=== PATIENT | female | born 1945 | race Caucasian/White ===

== ENCOUNTER → 2016-04-05 | Outpatient (CLI) | payer MEDICARE ==
[~2016-04-05] MED LIST: /PRAV20TA PO; AZIT500T PO; COZA100T2 PO; PAXI20TA3 PO; PRED10TA2 PO; PRED20TA PO; PRED50TA2 PO; PRED5TAB PO; TYLE325T5 PO; VENTAER IN; [UNRECOGNIZED DRUG - OTHER] PO; [UNRECOGNIZED DRUG - OTHER] PO
--- NOTE | 2016-04-28 00:26 | ECWPNPC ---
PATIENT NAME: SRUTHI HERZOG : 1945 GENDER: FEMALE VISIT DATE: 04/05/2016 DISCHARGE DATE: 04/05/16 1210 VISIT LOCKED DATE TIME: PHYSICIAN: MOE ARCHER RESOURCE: MOE ARCHER REASON FOR APPOINTMENT 1. LEGS HISTORY OF PRESENT ILLNESS HISTORY OF PRESENT ILLNESS: PAIN THE PATIENT DESCRIBES THE PAIN... FALL RISK SCREENING: SCREENING :NO FALLS IN THE PAST YEAR TODAY'S VISIT: NOTES: S/P LESB ON 02/29/16. FELT IMPROVEMENT WITHIN 48 HRS AND NOTED ABOUT 40-60% IMPROVEMT. ALL PAIN IS LOCATED IN POSTERIOR CALVES WITH MIN TO NO PAIN IN LOW BACK. STILL BOTHERS TO STAND FOR PROLONGED PERIODS. CAN WALK BUT THIS DOES INCREASE THE LEG ACHE. . CURRENT MEDICATIONS TAKING VISINE 0.05 % SOLUTION 1 DROP INTO AFFECTED EYE NEEDED OPHTHALMIC EVERY 6 HRS TAKING ZYRTEC 10 MG TABLET 1 TABLET ORALLY ONCE A DAY NEEDED TAKING TYLENOL 325 MG TABLET 1-2 TABLET NEEDED ORALLY EVERY 6 HRS TAKING OMEPRAZOLE 40MG 40 MG TABLET 1 TAB ORAL DAILY TAKING VITAMIN D (ERGOCALCIFEROL) 17668 UNIT CAPSULE 1 CAPSULE ORALLY WEEKLY TAKING PAXIL 20 MG TABLET 1 TABLET IN THE MORNING ORALLY ONCE A DAY FOR ANXIETY TAKING LOSARTAN POTASSIUM 100 MG TABLET 1 TAB(S) ORALLY DAILY TAKING [facility] FLUTICASONE PROPIONATE 50 MCG/ACT SUSPENSION 1 SPRAY IN EACH NOSTRIL NASALLY ONCE A DAY TAKING VENTOLIN HFA 108 (90 BASE) MCG/ACT AEROSOL SOLUTION 2 PUFFS NEEDED INHALATION EVERY 4 HRS NOT-TAKING OMEPRAZOLE 40 MG CAPSULE DELAYED RELEASE 1 CAPSULE ORALLY ONCE A DAY NOT-TAKING AMOXICILLIN-POT CLAVULANATE 875-125 MG TABLET 1 TABLET ORALLY EVERY 12 HRS NOT-TAKING BACLOFEN 10 MG TABLET 1 TABLET WITH FOOD OR MILK ORALLY THREE TIMES A DAY NOT-TAKING ATORVASTATIN CALCIUM 80 MG TABLET 1 TABLET ORALLY ONCE A DAY NOT-TAKING GABAPENTIN 600 MG TABLET 1 CAPSULE ORALLY THREE TIMES A DAY NOT-TAKING FLUTICASONE PROPIONATE 50 MCG/ACT SUSPENSION 1 SPRAY IN EACH NOSTRIL NASALLY ONCE A DAY FOR ALLERGIES/POSTNASAL DRIP NOT-TAKING PERCOCET 5-325 MG TABLET 1 TABLET NEEDED ORALLY EVERY 6 HRS (MDD 4) NOT-TAKING PREDNISONE 20 MG TABLET 3 TABLETS ORALLY ONCE A DAY NOT-TAKING REQUIP 0.25 MG TABLET 1 TABLET 1 TO 3 HOURS BEFORE BEDTIME ORALLY ONCE A DAY AROUND 7PM MEDICATION LIST REVIEWED AND RECONCILED WITH THE PATIENT PAST MEDICAL HISTORY HTN ANXIETY HYPERLIPIDEMIA FREQUENT BRONCHITIS MILD AORTIC VALVE SCLEROSIS (ECHO 10/2012) ESOPHAGEAL REFLUX ALLERGIC RHINITIS VIT D DEFICIENCY COLONOSCOPY/EGD 02/2013 (2 COLON POLYPS REMOVED, DIVERTICULUM, REPEAT DUE IN 2016) MITRAL VALVE DISORDER MITRAL VALVE DISORDER ALLERGIES SEASONAL: RED, ITCHY EYES, NASAL CONGESTION: ALLERGY SOCIAL HISTORY GENERAL: TOBACCO USE ARE YOU A:NONSMOKER LEARNING BARRIERS / SPECIAL NEEDS ORIENTED TO PLAN OF CARE: PATIENT, PAIN MANAGEMENT PATIENT, ORIENTED TO PLAN OF CARE: PATIENT, PAIN MANAGEMENT PATIENT. NEW PATIENT PAIN DIARY TODAY'S VISITNOTES FROM 0-10, WHAT LEVEL IS YOUR PAIN TODAY?0 PAIN CLINIC PFS, CLERGY, PUBLIC HEALTH REFERRALS PFS REFERRAL NEEDED?NO CLERGY REFERRAL NEEDED?NO PUBLIC HEALTH REFERRAL NEEDED?NO WAS THE PROVIDER NOTIFIED OF ANY PERTINENT INFO?NO PFS REFERRAL NEEDED?NO CLERGY REFERRAL NEEDED?NO PUBLIC HEALTH REFERRAL NEEDED?NO WAS THE PROVIDER NOTIFIED OF ANY PERTINENT INFO?NO REVIEW OF SYSTEMS CONSTITUTIONAL: ANY CHANGE IN YOUR MEDICAL CONDITION? NO . CHILLS NO . FEVER NO . INFECTION: DO YOU HAVE NEW INFECTIONS? NO . DO YOU HAVE HISTORY OF MRSA? NO . MUSCULOSKELETAL: ANY NEW PATTERNS OF PAIN OR NUMBNESS? NO . GASTROENTEROLOGY: ANY NEW CHANGE IN BOWEL CONTROL? NO . GENITOURINARY: ANY NEW CHANGE IN BLADDER CONTROL? NO . IS THERE A CHANCE YOU COULD BE ? NO . HEMATOLOGY/LYMPH: DO YOU TAKE ANY BLOOD THINNERS? (FOR EXAMPLE- COUMADIN, PLAVIX, AGGRENOX, PLATEL, PRADAXA, OR XARELTO) NO . WHEN WAS YOUR LAST DOSE? DATE: TIME: . NEUROLOGY: HAVE YOU FALLEN IN THE PAST 6 MONTHS? NO . ANY NEW EXTREMITY NUMBNESS OR WEAKNESS? NO . CARDIOLOGY: DO YOU HAVE A PACEMAKER OR DEFIBRILLATOR? NO . RESPIRATORY: HAVE YOU BEEN SICK IN THE PAST WEEK? YES, SINUS INFECTION AND COLD . FEVER NO . FLU LIKE SYMPTOMS? NO . COUGH YES - RECENTLY STARTED ON ABX AND INHALER . INTEGUMENTARY: DO YOU HAVE ANY RASHES OR OPEN SORES? NO . ALLERGIC/IMMUNO: ARE YOU ALLERGIC TO SHELLFISH OR IV DYE? NO . ANY NEW ALLERGIES? NO . PSYCHIATRIC: DO YOU HAVE THOUGHTS OF HURTING YOURSELF OR SOMEONE ELSE? NO . ARE YOU ABUSED, NEGLECTED, OR IN AN UNSAFE ENVIRONMENT? NO . ENDOCRINOLOGY: ARE YOU DIABETIC? NO . OTHER: DO YOU NEED ANY PRESCRIPTIONS? NO . IF YES, PLEASE LIST: ____ . ANY NEW PROBLEMS WITH YOUR MEDICATIONS? NO . WHEN DID YOU LAST EAT? ____ . WHEN DID YOU LAST DRINK? ____ . WHAT DID YOU LAST DRINK? ____ . NAME OF PERSON DRIVING YOU HOME? ____ . DO YOU HAVE ANY OTHER QUESTIONS OR CONCERNS NO . REVIEWED BY: PROVIDER: MOE GARCIA . VITAL SIGNS WT 171 LBS, HT 66 IN, BMI 27.60 INDEX, BP 143/72 MM HG, HR 90 /MIN, RR 18 /MIN, TEMP 97.5 F, OXYGEN SAT % 96, NA INITIALS TL 1109, REVIEWED BY: CS. EXAMINATION GENERAL EXAMINATION: PSYCHALERT , ORIENTED X 3 , APPROPRIATE MOOD AND AFFECT . LUNGS:CLEAR TO AUSCULTATION BILATERALLY, NO WHEEZES, RAKES OR WHONCHI.. HEART:NO MURMURS, CLICK OR RUBS, NORMAL S1S2, HEART RATE REGULAR. MUSCULOSKELETAL:MUSCLE STRENGTH TESTING 5/5 BILATERAL UPPER AND LOWER EXTREMITIES. ABLE TO RISE EASILY TO STANDING POSITION. . MINIMAL TENDERNESS WITH PALPATION OVER LUMBAR SPINOUS PROCESSES AND ACROSS THE LUMBOSACRAL AXIS. . NEUROLOGIC EXAM: ANTALGIC STEPPING GAIT. DTR'S 2+ BILATERAL UPPER EXT, 4+ BENEDICTO LOWER EXTREMITES W/CLONUS. DECREASES SENSATION LEFT LEG FROM THIGH TO FOOT.. ASSESSMENTS LUMBAR DISC DISPLACEMENT WITHOUT MYELOPATHY - M51.26 (PRIMARY) LUMBAR SPINAL STENOSIS - M48.06 TREATMENT LUMBAR DISC DISPLACEMENT WITHOUT MYELOPATHY CAUDAL/LUMBAR EPIDURAL NOTES: WHAT IS LUMBAR EPIDURAL INJECTION? MATERIAL WAS PRINTED, FALLS CARE PLAN: 1. RECOMMEND REMOVING ALL THROW RUGS. 2. RECOMMEND NIGHT LIGHTS 3. RECOMMEND WEARING RUBBER SOLED SHOES AND TO NOT GO BAREFOOT. 4.. ADVISED TO CHANGE POSITION SLOWLY FROM SUPINE TO STANDING TO AVOID DIZZINESS. 5. ADVISED TO USE ASSISTIVE DEVICE SUCH CANE OR WALKER 6. USE [employer]IF[employer] SERVICES OR KEEP PORTABLE PHONE READILY AVAILABLE. PROCEDURE CODES FA211 ESTABILISHED PATIENT [facility] FACILITY CHARGE N6573 BP SCR PRFRM RCMDD DEFIND SCR INTVL G8029 PAIN ASSESS POS TOOL F/U PLAN DOC 3016F PT SCRND UNHLTHY [place] USE 1123F ACP DISCUSS/DSCN MKR DOCD 1036F TOBACCO NON-USER 0518F FALL PLAN OF CARE DOCD G8427 DOC MEDS VERIFIED W/PT OR RE G8420 BMI<30 AND >=22 CALC & DOCU 3288F FALL RISK ASSESSMENT DOCD FOLLOW UP AFTER INJECTION (REASON: CHECK AUTH FOR LESB) ELECTRONICALLY SIGNED BY SHIRA CHOE ON 04/27/2016 AT 09:40 AM EST DISCLAIMER : THIS IS A VISIT SUMMARY EXTRACTED FROM THE [employer] CHART. IT IS NOT A COPY OF THE [employer] PROGRESS NOTE. MTDD
== END ==
LOC: M PAIN 10:40
PROVIDERS: ATTEND Nurse Practitioner Family
DX: Z09 Encounter for follow-up examination after completed treatment for conditions other than malignant neoplasm (principal); G89.29 Other chronic pain; M51.26 Other intervertebral disc displacement, lumbar region; M48.06 Spinal stenosis, lumbar region; I10 Essential (primary) hypertension; F41.9 Anxiety disorder, unspecified; E78.5 Hyperlipidemia, unspecified; I35.0 Nonrheumatic aortic (valve) stenosis; K21.9 Gastro-esophageal reflux disease without esophagitis; J30.89 Other allergic rhinitis; E55.9 Vitamin D deficiency, unspecified; J30.2 Other seasonal allergic rhinitis; Z79.899 Other long term (current) drug therapy

== ENCOUNTER → 2016-04-18 | Outpatient (CLI) | payer MEDICARE ==
[~2016-04-18] MED LIST changes: +ISOVUE-M 300 61% 15ML VIAL (Q9967) As Ordered ONE; +LIDOCAINE 1% SDV INJ 30 ML VIAL As Ordered ONE; +diazePAM 5 MG TAB As Ordered ONE; +methylPREDNISolone SUSP 40 MG/ML (DEPO-medrol) VIAL (J1030) As Ordered ONE; +oxyCODONE 5MG TAB As Ordered ONE
--- NOTE | 2016-04-18 13:47 | REP ---
Partial lumbar spine series: Three views. History: Lumbar epidural steroid injection for pain. 9 seconds of fluoroscopy time is reported. Findings: A sequence of three fluoroscopically obtained intraprocedural last image hold spot radiographs document needle position and contrast injection associated with lumbar epidural injection procedure. Signed by Kayden Hubbard MD 04/18/2016 02:25 P
--- NOTE | 2016-04-22 23:50 | ECWPNPC ---
PATIENT NAME: SRUTHI HERZOG : 1945 GENDER: FEMALE VISIT DATE: 04/18/2016 DISCHARGE DATE: 04/18/16 1523 VISIT LOCKED DATE TIME: PHYSICIAN: ÁNGEL STEWART RESOURCE: ÁNGEL STEWART REASON FOR APPOINTMENT 1. LUMBAR EPIDURAL HISTORY OF PRESENT ILLNESS HISTORY OF PRESENT ILLNESS: PAIN THE PATIENT DESCRIBES THE PAIN... FALL RISK SCREENING: SCREENING :NO FALLS IN THE PAST YEAR CURRENT MEDICATIONS TAKING VISINE 0.05 % SOLUTION 1 DROP INTO AFFECTED EYE NEEDED OPHTHALMIC EVERY 6 HRS, NOTES: 1 WEEK TAKING ZYRTEC 10 MG TABLET 1 TABLET ORALLY ONCE A DAY NEEDED, NOTES: 1 WEEK TAKING TYLENOL 325 MG TABLET 1-2 TABLET NEEDED ORALLY EVERY 6 HRS, NOTES: 2 WEEKS TAKING OMEPRAZOLE 40MG 40 MG TABLET 1 TAB ORAL DAILY, NOTES: 04/18 6AM TAKING VITAMIN D (ERGOCALCIFEROL) 24751 UNIT CAPSULE 1 CAPSULE ORALLY WEEKLY, NOTES: 04/15 TAKING PAXIL 20 MG TABLET 1 TABLET IN THE MORNING ORALLY ONCE A DAY FOR ANXIETY, NOTES: 04/18 6AM TAKING LOSARTAN POTASSIUM 100 MG TABLET 1 TAB(S) ORALLY DAILY, NOTES: 04/18 6AM TAKING [facility] FLUTICASONE PROPIONATE 50 MCG/ACT SUSPENSION 1 SPRAY IN EACH NOSTRIL NASALLY ONCE A DAY, NOTES: 3 WEEKS NOT-TAKING VENTOLIN HFA 108 (90 BASE) MCG/ACT AEROSOL SOLUTION 2 PUFFS NEEDED INHALATION EVERY 4 HRS NOT-TAKING OMEPRAZOLE 40 MG CAPSULE DELAYED RELEASE 1 CAPSULE ORALLY ONCE A DAY NOT-TAKING AMOXICILLIN-POT CLAVULANATE 875-125 MG TABLET 1 TABLET ORALLY EVERY 12 HRS NOT-TAKING BACLOFEN 10 MG TABLET 1 TABLET WITH FOOD OR MILK ORALLY THREE TIMES A DAY NOT-TAKING ATORVASTATIN CALCIUM 80 MG TABLET 1 TABLET ORALLY ONCE A DAY NOT-TAKING GABAPENTIN 600 MG TABLET 1 CAPSULE ORALLY THREE TIMES A DAY NOT-TAKING FLUTICASONE PROPIONATE 50 MCG/ACT SUSPENSION 1 SPRAY IN EACH NOSTRIL NASALLY ONCE A DAY FOR ALLERGIES/POSTNASAL DRIP NOT-TAKING PERCOCET 5-325 MG TABLET 1 TABLET NEEDED ORALLY EVERY 6 HRS (MDD 4) NOT-TAKING PREDNISONE 20 MG TABLET 3 TABLETS ORALLY ONCE A DAY NOT-TAKING REQUIP 0.25 MG TABLET 1 TABLET 1 TO 3 HOURS BEFORE BEDTIME ORALLY ONCE A DAY AROUND 7PM MEDICATION LIST REVIEWED AND RECONCILED WITH THE PATIENT PAST MEDICAL HISTORY HTN ANXIETY HYPERLIPIDEMIA FREQUENT BRONCHITIS MILD AORTIC VALVE SCLEROSIS (ECHO 10/2012) ESOPHAGEAL REFLUX ALLERGIC RHINITIS VIT D DEFICIENCY COLONOSCOPY/EGD 02/2013 (2 COLON POLYPS REMOVED, DIVERTICULUM, REPEAT DUE IN 2016) MITRAL VALVE DISORDER MITRAL VALVE DISORDER ALLERGIES SEASONAL: RED, ITCHY EYES, NASAL CONGESTION: ALLERGY SOCIAL HISTORY GENERAL: TOBACCO USE ARE YOU A:NONSMOKER LEARNING BARRIERS / SPECIAL NEEDS ORIENTED TO PLAN OF CARE: PATIENT, PAIN MANAGEMENT PATIENT, ORIENTED TO PLAN OF CARE: PATIENT, PAIN MANAGEMENT PATIENT. NEW PATIENT PAIN DIARY TODAY'S VISITNOTES FROM 0-10, WHAT LEVEL IS YOUR PAIN TODAY?0 PAIN CLINIC PFS, CLERGY, PUBLIC HEALTH REFERRALS PFS REFERRAL NEEDED?NO CLERGY REFERRAL NEEDED?NO PUBLIC HEALTH REFERRAL NEEDED?NO WAS THE PROVIDER NOTIFIED OF ANY PERTINENT INFO?NO PFS REFERRAL NEEDED?NO CLERGY REFERRAL NEEDED?NO PUBLIC HEALTH REFERRAL NEEDED?NO WAS THE PROVIDER NOTIFIED OF ANY PERTINENT INFO?NO REVIEW OF SYSTEMS CONSTITUTIONAL: ANY CHANGE IN YOUR MEDICAL CONDITION? NO . CHILLS NO . FEVER NO . INFECTION: DO YOU HAVE NEW INFECTIONS? NO . DO YOU HAVE HISTORY OF MRSA? NO . MUSCULOSKELETAL: ANY NEW PATTERNS OF PAIN OR NUMBNESS? NO . GASTROENTEROLOGY: ANY NEW CHANGE IN BOWEL CONTROL? NO . GENITOURINARY: ANY NEW CHANGE IN BLADDER CONTROL? NO . IS THERE A CHANCE YOU COULD BE ? NO . HEMATOLOGY/LYMPH: DO YOU TAKE ANY BLOOD THINNERS? (FOR EXAMPLE- COUMADIN, PLAVIX, AGGRENOX, PLATEL, PRADAXA, OR XARELTO) NO . WHEN WAS YOUR LAST DOSE? DATE: TIME: . NEUROLOGY: HAVE YOU FALLEN IN THE PAST 6 MONTHS? NO . ANY NEW EXTREMITY NUMBNESS OR WEAKNESS? NO . CARDIOLOGY: DO YOU HAVE A PACEMAKER OR DEFIBRILLATOR? NO . RESPIRATORY: HAVE YOU BEEN SICK IN THE PAST WEEK? NO . FEVER NO . FLU LIKE SYMPTOMS? NO . COUGH NO . INTEGUMENTARY: DO YOU HAVE ANY RASHES OR OPEN SORES? NO . ALLERGIC/IMMUNO: ARE YOU ALLERGIC TO SHELLFISH OR IV DYE? NO . ANY NEW ALLERGIES? NO . PSYCHIATRIC: DO YOU HAVE THOUGHTS OF HURTING YOURSELF OR SOMEONE ELSE? NO . ARE YOU ABUSED, NEGLECTED, OR IN AN UNSAFE ENVIRONMENT? NO . ENDOCRINOLOGY: ARE YOU DIABETIC? NO . OTHER: DO YOU NEED ANY PRESCRIPTIONS? NO . IF YES, PLEASE LIST: ____ . ANY NEW PROBLEMS WITH YOUR MEDICATIONS? NO . WHEN DID YOU LAST EAT? 04/17 6PM . WHEN DID YOU LAST DRINK? 04/18 6AM . WHAT DID YOU LAST DRINK? WATER . NAME OF PERSON DRIVING YOU HOME? JAMES . DO YOU HAVE ANY OTHER QUESTIONS OR CONCERNS NO . REVIEWED BY: PROVIDER: . VITAL SIGNS WT 171 LBS, HT 66 IN, BMI 27.60 INDEX, BP 161/85 MM HG, HR 94 /MIN, RR 18 /MIN, TEMP 97.9 F, OXYGEN SAT % 96, SAFE IN ENV? (Y/N) Y, NA INITIALS MP, REVIEWED BY: DS. ASSESSMENTS INTERVERTEBRAL DISC DISORDERS WITH RADICULOPATHY, LUMBOSACRAL REGION - M51.17 (PRIMARY) PROCEDURES PRE PROCEDURE DIAGNOSIS LUMBOSACRAL DISC DISORDER WITH RADICULOPATHY POST PROCEDURE DIAGNOSIS LUMBOSACRAL DISC DISORDER WITH RADICULOPATHY PROCEDURE LUMBAR EPIDURAL STEROID INJECTION UNDER FLUOROSCOPIC GUIDANCE SURGEON DR. ÁNGEL STEWART RESOLUTION ANALYST NONE ANESTHESIA LOCAL PRE PROCEDURE NOTE THE PATIENT HAS A HISTORY OF CHRONIC LOW BACK PAIN. I EVALUATE THE PATIENT AND REVIEWED THE CHART. I WENT OVER THE RISKS, ALTERNATIVES, AND BENEFITS ASSOCIATED WITH THIS PROCEDURE. THE PATIENT WOULD LIKE TO PROCEED AND GIVE CONSENT TO PERFORMED THE PROCEDURE. THE PATIENT DENIES UNEXPLAINABLE WEIGHT LOSS, FEVER, CHILLS, OR NEW CHANGES IN URINARY OR BOWEL CONTROL DESCRIPTION OF PROCEDURE THE PATIENT WAS BROUGHT TO THE PROCEDURE ROOM AND PLACED IN THE PRONE POSITION. THE LUMBOSACRAL AREA WAS CLEANED WITH BETADINE SOLUTION AND DRAPED ASEPTICALLY. THE PROCEDURE WAS DONE UNDER STERILE CONDITIONS. I CHECKED LATERALITY AND THE LEVEL WHERE THE PROCEDURE WAS GOING TO BE PERFORMED WITH THE PATIENT AND THE SUPPORTING STAFF AT THE MOMENT OF THE TIME OUT IN THE PROCEDURE ROOM. UNDER FLUOROSCOPIC GUIDANCE, THE TARGET POINT WAS SELECTED AT THE INTERLAMINAR LEVEL OF L5-S1. LIDOCAINE WAS USED TO NUMB THE SKIN AND THE SUBCUTANEOUS TISSUE BELOW IT. EPIDURAL TUOHY NEEDLE, 17-GAUGE, WAS ADVANCED UNDER FLUOROSCOPIC GUIDANCE AND FOLLOWING PATIENT FEEDBACK UNTIL THE EPIDURAL SPACE WAS REACHED, 7 CM DEEP INTO THE SKIN BY THE LOSS OF RESISTANCE TECHNIQUE. ISOVUE M DYE 30%, 0.25 ML, WAS INJECTED SHOWING ADEQUATE SPREAD OF THE DYE. THEN, A SOLUTION OF 3 ML OF NORMAL SALINE WITH DEPO-MEDROL 60 MG WAS INJECTED SLOWLY FOLLOWING PATIENT FEEDBACK. THERE WAS NO EVIDENCE OF BLOOD, PARESTHESIA OR CEREBROSPINAL FLUID DURING THE PROCEDURE. THE PATIENT WAS SENT TO THE RECOVERY ROOM. THE PATIENT WAS MOVING THE EXTREMITIES AND DOING WELL. THERE WAS NO COMPLICATION DURING THE PROCEDURE. FLUOROSCOPY TIME WAS 9 SECONDS POST PROCEDURE NOTE THE PATIENT WILL BE SEEN IN A FOLLOW UP IN THE NEXT FEW WEEKS. INSTRUCTIONS WERE GIVEN, QUESTIONS WERE ANSWERED, AND THE PATIENT EXPRESSED UNDERSTANDING AND AGREES WITH THE PLAN. I, NUNO COWART, DOCUMENTED THE ABOVE INFORMATION ACTING A SCRIBE FOR DR. STEWART. I, DR. STEWART, HAVE REVIEWED THE ABOVE DOCUMENT, SCRIBED BY NUNO COWART, AND I VERIFY THAT IT IS ACCURATE DIAGNOSTIC IMAGING [facility] FLUORO GUIDE SPINE INJECTION (PAIN)[id number] PROCEDURE CODES 36257 LUMBAR/SACRAL W/ IMAGING 6045F RADXPS IN END [id number] PXD FOLLOW UP 3 WEEKS ELECTRONICALLY SIGNED BY ÁNGEL STEWART MD ON 04/22/2016 AT 08:32 PM EST DISCLAIMER : THIS IS A VISIT SUMMARY EXTRACTED FROM THE [employer] CHART. IT IS NOT A COPY OF THE [employer] PROGRESS NOTE. MTDD
== END ==
LOC: M PAIN 10:50
PROVIDERS: ATTEND Anesthesiology
DX: G89.29 Other chronic pain (principal); M51.17 Intervertebral disc disorders with radiculopathy, lumbosacral region; M54.5 Low back pain; Z79.899 Other long term (current) drug therapy
CPT/HCPCS: 62323; J1030; Q9967

== ENCOUNTER → 2016-05-17 | Outpatient (REF) | payer MEDICARE ==
[~2016-05-17] MED LIST changes: -ISOVUE-M 300 61% 15ML VIAL (Q9967) As Ordered ONE; -LIDOCAINE 1% SDV INJ 30 ML VIAL As Ordered ONE; -diazePAM 5 MG TAB As Ordered ONE; -methylPREDNISolone SUSP 40 MG/ML (DEPO-medrol) VIAL (J1030) As Ordered ONE; -oxyCODONE 5MG TAB As Ordered ONE
== END ==
LOC: M SFHCLERA 10:05
PROVIDERS: ATTEND Family Medicine
DX: M48.07 Spinal stenosis, lumbosacral region (principal); Z79.899 Other long term (current) drug therapy
CPT/HCPCS: 80061; G0463

== ENCOUNTER → 2016-06-06 | Outpatient (CLI) | payer MEDICARE ==
--- NOTE | 2016-06-15 00:07 | ECWPNPC ---
PATIENT NAME: SRUTHI HERZOG : 1945 GENDER: FEMALE VISIT DATE: 06/06/2016 DISCHARGE DATE: 06/06/16 1141 VISIT LOCKED DATE TIME: PHYSICIAN: MOE ARCHER RESOURCE: MOE ARCHER REASON FOR APPOINTMENT 1. FOLLOW UP HISTORY OF PRESENT ILLNESS HISTORY OF PRESENT ILLNESS: PAIN THE PATIENT DESCRIBES THE PAIN... FALL RISK SCREENING: SCREENING :NO FALLS IN THE PAST YEAR TODAY'S VISIT: NOTES: IS S/P LESB ON 04/18/16. REPORTS HAD MINIMAL TO NO RELIEF FROM THE TREATMENT.HAD NO SENSE OF MEDICATION OR PRESSURE INTO LEGS. PAIN IS ALL IN POSTERIOR CALVES.NO PAIN IN FRONT OF CALVES, THIGHS OR HIP. DOES HAVE SOME DISCOMFORT ACROSS THE LOW BACK. IS EXPERIENCING WEAKNESS IN RIGHT LEG. HAS HAD NO RENCET FALLS. DENIES NUMBNESS AND TINGLING IN LEGS OR FEET.. CURRENT MEDICATIONS TAKING VITAMIN D (CHOLECALCIFEROL) 1000 UNIT TABLET 1 TABLET ORALLY ONCE A DAY TAKING LOSARTAN POTASSIUM 100 MG TABLET TAKE 1 TABLET BY MOUTH DAILY ORALLY DAILY TAKING VISINE 0.05 % SOLUTION 1 DROP INTO AFFECTED EYE NEEDED OPHTHALMIC EVERY 6 HRS TAKING ZYRTEC 10 MG TABLET 1 TABLET ORALLY ONCE A DAY NEEDED TAKING TYLENOL 325 MG TABLET 1-2 TABLET NEEDED ORALLY EVERY 6 HRS TAKING OMEPRAZOLE 40MG 40 MG TABLET 1 TAB ORAL DAILY TAKING PAXIL 20 MG TABLET 1 TABLET IN THE MORNING ORALLY ONCE A DAY FOR ANXIETY TAKING [facility] FLUTICASONE PROPIONATE 50 MCG/ACT SUSPENSION 1 SPRAY IN EACH NOSTRIL NASALLY ONCE A DAY TAKING ATORVASTATIN CALCIUM 80 MG TABLET 1 TABLET ORALLY ONCE A DAY DISCONTINUED FLONASE 50 MCG/DOSE INHALER 2 SPRAY IN EACH NOSTRIL NASALLY QHS MEDICATION LIST REVIEWED AND RECONCILED WITH THE PATIENT PAST MEDICAL HISTORY HTN ANXIETY HYPERLIPIDEMIA FREQUENT BRONCHITIS MILD AORTIC VALVE SCLEROSIS (ECHO 10/2012) ESOPHAGEAL REFLUX ALLERGIC RHINITIS VIT D DEFICIENCY COLONOSCOPY/EGD 02/2013 (2 COLON POLYPS REMOVED, DIVERTICULUM, REPEAT DUE IN 2016) MITRAL VALVE DISORDER MITRAL VALVE DISORDER ALLERGIES SEASONAL: RED, ITCHY EYES, NASAL CONGESTION: ALLERGY SOCIAL HISTORY GENERAL: TOBACCO USE ARE YOU A:NONSMOKER LEARNING BARRIERS / SPECIAL NEEDS ORIENTED TO PLAN OF CARE: PATIENT, PAIN MANAGEMENT PATIENT, ORIENTED TO PLAN OF CARE: PATIENT, PAIN MANAGEMENT PATIENT. NEW PATIENT PAIN DIARY TODAY'S VISITNOTES FROM 0-10, WHAT LEVEL IS YOUR PAIN TODAY?0 PAIN CLINIC PFS, CLERGY, PUBLIC HEALTH REFERRALS PFS REFERRAL NEEDED?NO CLERGY REFERRAL NEEDED?NO PUBLIC HEALTH REFERRAL NEEDED?NO WAS THE PROVIDER NOTIFIED OF ANY PERTINENT INFO?NO PFS REFERRAL NEEDED?NO CLERGY REFERRAL NEEDED?NO PUBLIC HEALTH REFERRAL NEEDED?NO WAS THE PROVIDER NOTIFIED OF ANY PERTINENT INFO?NO REVIEW OF SYSTEMS CONSTITUTIONAL: ANY CHANGE IN YOUR MEDICAL CONDITION? NO . CHILLS NO . FEVER NO . INFECTION: DO YOU HAVE NEW INFECTIONS? NO . DO YOU HAVE HISTORY OF MRSA? NO . MUSCULOSKELETAL: ANY NEW PATTERNS OF PAIN OR NUMBNESS? NO . GASTROENTEROLOGY: ANY NEW CHANGE IN BOWEL CONTROL? NO . GENITOURINARY: ANY NEW CHANGE IN BLADDER CONTROL? NO . IS THERE A CHANCE YOU COULD BE ? NO . HEMATOLOGY/LYMPH: DO YOU TAKE ANY BLOOD THINNERS? (FOR EXAMPLE- COUMADIN, PLAVIX, AGGRENOX, PLATEL, PRADAXA, OR XARELTO) NO . WHEN WAS YOUR LAST DOSE? DATE: TIME: . NEUROLOGY: HAVE YOU FALLEN IN THE PAST 6 MONTHS? NO . ANY NEW EXTREMITY NUMBNESS OR WEAKNESS? NO . CARDIOLOGY: DO YOU HAVE A PACEMAKER OR DEFIBRILLATOR? NO . RESPIRATORY: HAVE YOU BEEN SICK IN THE PAST WEEK? NO . FEVER NO . FLU LIKE SYMPTOMS? NO . COUGH NO . INTEGUMENTARY: DO YOU HAVE ANY RASHES OR OPEN SORES? NO . ALLERGIC/IMMUNO: ARE YOU ALLERGIC TO SHELLFISH OR IV DYE? NO . ANY NEW ALLERGIES? NO . PSYCHIATRIC: DO YOU HAVE THOUGHTS OF HURTING YOURSELF OR SOMEONE ELSE? NO . ARE YOU ABUSED, NEGLECTED, OR IN AN UNSAFE ENVIRONMENT? NO . ENDOCRINOLOGY: ARE YOU DIABETIC? NO . OTHER: DO YOU NEED ANY PRESCRIPTIONS? NO . IF YES, PLEASE LIST: ____ . ANY NEW PROBLEMS WITH YOUR MEDICATIONS? NO . WHEN DID YOU LAST EAT? ____ . WHEN DID YOU LAST DRINK? ____ . WHAT DID YOU LAST DRINK? ____ . NAME OF PERSON DRIVING YOU HOME? ____ . DO YOU HAVE ANY OTHER QUESTIONS OR CONCERNS YES, RIGHT EAR ACHE X 1 WEEK . REVIEWED BY: PROVIDER: MOE ARCHER TUMBLER PLATER . VITAL SIGNS WT 184 LBS, HT 66 IN, BMI 29.70 INDEX, BP 127/67 MM HG, HR 89 /MIN, RR 18 /MIN, TEMP 99.0 F, OXYGEN SAT % 97, NA INITIALS AW 1057, REVIEWED BY: AD. EXAMINATION GENERAL EXAMINATION: PSYCHALERT , ORIENTED X 3 , APPROPRIATE MOOD AND AFFECT . LUNGS:CLEAR TO AUSCULTATION BILATERALLY. HEART:HEART RATE REGULAR. MUSCULOSKELETAL:DIFFUCULT TO STAND. BALANCE OFF. GAIT SLOW/WOBBLING. NO SPECIFIC LE WEAKNESS. NO TENDERNESS WITH PALPATION OVER LSP OR OVER CALVES. . ASSESSMENTS SPINAL STENOSIS OF LUMBOSACRAL REGION - M48.07 (PRIMARY) LUMBAR DISC DISPLACEMENT WITHOUT MYELOPATHY - M51.26 (PRIMARY) LUMBAR SPINAL STENOSIS - M48.06 TREATMENT SPINAL STENOSIS OF LUMBOSACRAL REGION CAUDAL/LUMBAR EPIDURALMOE ARCHER 06/06/2016 11:24:08 AM > INTRALAMIAL APPROACH AT L3 LEVEL NOTES: CALL DR BERRY OR GO TO URGENT CARE IF RIGHT EAR PAIN DOES NOT IMPROVE OR IF DIZZINESS DEVELOPSCONTINUE WALKING ABLE. PREVENTIVE MEDICINE PAIN CLINIC TEACHING: PROCEDURE TEACHING PT. DECLINED PRINTED INFORMATION ON EPIDURAL STATING SHE HAS HAD THEM AND IS VERY FAMILIAR WITH THE PROCEDURE.. PROCEDURE CODES FA211 ESTABILISHED PATIENT [facility] FACILITY CHARGE G8730 PAIN ASSESS POS TOOL F/U PLAN DOC G8427 DOC MEDS VERIFIED W/PT OR RE DISPOSITION & COMMUNICATION FOLLOW UP AFTER INJECTION (REASON: CHECK AUTH FOR L3 INTRALAMINAL LESB) ELECTRONICALLY SIGNED BY SHIRA CHOE ON 06/14/2016 AT 10:13 AM EDT DISCLAIMER : THIS IS A VISIT SUMMARY EXTRACTED FROM THE [employer] CHART. IT IS NOT A COPY OF THE [employer] PROGRESS NOTE. JANE
== END ==
LOC: M PAIN 10:20
PROVIDERS: ATTEND Nurse Practitioner Family
DX: M48.07 Spinal stenosis, lumbosacral region (principal); M51.26 Other intervertebral disc displacement, lumbar region; M48.06 Spinal stenosis, lumbar region; Z79.2 Long term (current) use of antibiotics; Z79.899 Other long term (current) drug therapy; I10 Essential (primary) hypertension; F41.9 Anxiety disorder, unspecified; E78.5 Hyperlipidemia, unspecified; K21.9 Gastro-esophageal reflux disease without esophagitis; I35.0 Nonrheumatic aortic (valve) stenosis; J30.2 Other seasonal allergic rhinitis; E55.9 Vitamin D deficiency, unspecified; J45.20 Mild intermittent asthma, uncomplicated

== ENCOUNTER → 2016-06-26 | Outpatient (CLI) | payer MEDICARE ==
[~2016-06-26] MED LIST changes: +ISOVUE-M 300 61% 15ML VIAL (Q9967) As Ordered ONE; +LIDOCAINE 1% SDV INJ 30 ML VIAL As Ordered ONE; +diazePAM 5 MG TAB As Ordered ONE; +methylPREDNISolone SUSP 40 MG/ML (DEPO-medrol) VIAL (J1030) As Ordered ONE; +oxyCODONE 5MG TAB As Ordered ONE
--- NOTE | 2016-06-26 12:25 | REP ---
PARTIAL LUMBAR SPINE SERIES: Three views. HISTORY: Injection procedure for pain. 9 seconds of fluoroscopy time is reported. FINDINGS: A sequence of three fluoroscopically obtained last image hold intraprocedural spot radiographs of the lumbar spine document needle position and contrast injection associated with lumbar epidural injection procedure. Signed by Kayden Hubbard MD 06/26/2016 02:56 P
--- NOTE | 2016-07-01 23:20 | ECWPNPC ---
PATIENT NAME: SRUTHI HERZOG : 1945 GENDER: FEMALE VISIT DATE: 06/26/2016 DISCHARGE DATE: 06/26/16 1019 VISIT LOCKED DATE TIME: PHYSICIAN: ÁNGEL STEWART RESOURCE: ÁNGEL STEWART REASON FOR APPOINTMENT 1. LESI-L3 HISTORY OF PRESENT ILLNESS HISTORY OF PRESENT ILLNESS: PAIN THE PATIENT DESCRIBES THE PAIN... FALL RISK SCREENING: SCREENING :NO FALLS IN THE PAST YEAR CURRENT MEDICATIONS TAKING VITAMIN D (CHOLECALCIFEROL) 1000 UNIT TABLET 1 TABLET ORALLY ONCE A DAY, NOTES: 06/25/16729 TAKING LOSARTAN POTASSIUM 100 MG TABLET TAKE 1 TABLET BY MOUTH DAILY ORALLY DAILY, NOTES: 06/25/16729 TAKING VISINE 0.05 % SOLUTION 1 DROP INTO AFFECTED EYE NEEDED OPHTHALMIC EVERY 6 HRS, NOTES: NONE LATELY TAKING ZYRTEC 10 MG TABLET 1 TABLET ORALLY ONCE A DAY NEEDED, NOTES: NONE LATELY TAKING TYLENOL 325 MG TABLET 1-2 TABLET NEEDED ORALLY EVERY 6 HRS, NOTES: NONE LATELY TAKING OMEPRAZOLE 40MG 40 MG TABLET 1 TAB ORAL DAILY, NOTES: 06/25/16729 TAKING PAXIL 20 MG TABLET 1 TABLET IN THE MORNING ORALLY ONCE A DAY FOR ANXIETY, NOTES: 06/25/16729 TAKING [facility] FLUTICASONE PROPIONATE 50 MCG/ACT SUSPENSION 1 SPRAY IN EACH NOSTRIL NASALLY ONCE A DAY, NOTES: 06/25/162099 TAKING ATORVASTATIN CALCIUM 80 MG TABLET 1 TABLET ORALLY ONCE A DAY, NOTES: 06/25/16729 MEDICATION LIST REVIEWED AND RECONCILED WITH THE PATIENT PAST MEDICAL HISTORY HTN ANXIETY HYPERLIPIDEMIA FREQUENT BRONCHITIS MILD AORTIC VALVE SCLEROSIS (ECHO 10/2012) ESOPHAGEAL REFLUX ALLERGIC RHINITIS VIT D DEFICIENCY COLONOSCOPY/EGD 02/2013 (2 COLON POLYPS REMOVED, DIVERTICULUM, REPEAT DUE IN 2015) MITRAL VALVE DISORDER MITRAL VALVE DISORDER ALLERGIES SEASONAL: RED, ITCHY EYES, NASAL CONGESTION: ALLERGY SOCIAL HISTORY GENERAL: PAIN CLINIC PFS, CLERGY, PUBLIC HEALTH REFERRALS CLERGY REFERRAL NEEDED?NO WAS THE PROVIDER NOTIFIED OF ANY PERTINENT INFO?NO PFS REFERRAL NEEDED?NO PUBLIC HEALTH REFERRAL NEEDED?NO PATIENT: ____. REVIEW OF SYSTEMS CONSTITUTIONAL: ANY CHANGE IN YOUR MEDICAL CONDITION? NO . CHILLS NO . FEVER NO . INFECTION: DO YOU HAVE NEW INFECTIONS? NO . DO YOU HAVE HISTORY OF MRSA? NO . MUSCULOSKELETAL: ANY NEW PATTERNS OF PAIN OR NUMBNESS? NO . GASTROENTEROLOGY: ANY NEW CHANGE IN BOWEL CONTROL? NO . GENITOURINARY: ANY NEW CHANGE IN BLADDER CONTROL? NO . IS THERE A CHANCE YOU COULD BE ? NO . HEMATOLOGY/LYMPH: DO YOU TAKE ANY BLOOD THINNERS? (FOR EXAMPLE- COUMADIN, PLAVIX, AGGRENOX, PLATEL, PRADAXA, OR XARELTO) NO . WHEN WAS YOUR LAST DOSE? DATE: TIME: . NEUROLOGY: HAVE YOU FALLEN IN THE PAST 6 MONTHS? NO . ANY NEW EXTREMITY NUMBNESS OR WEAKNESS? NO . CARDIOLOGY: DO YOU HAVE A PACEMAKER OR DEFIBRILLATOR? NO . RESPIRATORY: HAVE YOU BEEN SICK IN THE PAST WEEK? NO . FEVER NO . FLU LIKE SYMPTOMS? NO . COUGH NO . INTEGUMENTARY: DO YOU HAVE ANY RASHES OR OPEN SORES? NO . ALLERGIC/IMMUNO: ARE YOU ALLERGIC TO SHELLFISH OR IV DYE? NO . ANY NEW ALLERGIES? NO . PSYCHIATRIC: DO YOU HAVE THOUGHTS OF HURTING YOURSELF OR SOMEONE ELSE? NO . ARE YOU ABUSED, NEGLECTED, OR IN AN UNSAFE ENVIRONMENT? NO . ENDOCRINOLOGY: ARE YOU DIABETIC? NO . OTHER: DO YOU NEED ANY PRESCRIPTIONS? NO . IF YES, PLEASE LIST: ____ . ANY NEW PROBLEMS WITH YOUR MEDICATIONS? NO . WHEN DID YOU LAST EAT? ____ . WHEN DID YOU LAST DRINK? ____ . WHAT DID YOU LAST DRINK? ____ . NAME OF PERSON DRIVING YOU HOME? ____ . DO YOU HAVE ANY OTHER QUESTIONS OR CONCERNS NO . REVIEWED BY: PROVIDER: . VITAL SIGNS WT 172 LBS, HT 66 IN, BMI 27.76 INDEX, BP 157/81 MM HG, HR 98 /MIN, RR 18 /MIN, TEMP 99.1 F, NA INITIALS [id number], REVIEWED BY: MLF. ASSESSMENTS INTERVERTEBRAL DISC DISORDERS WITH RADICULOPATHY, LUMBOSACRAL REGION - M51.17 (PRIMARY) PROCEDURES PRE PROCEDURE DIAGNOSIS LUMBOSACRAL DISC DISORDER WITH RADICULOPATHY POST PROCEDURE DIAGNOSIS LUMBOSACRAL DISC DISORDER WITH RADICULOPATHY PROCEDURE LUMBAR EPIDURAL STEROID INJECTION UNDER FLUOROSCOPIC GUIDANCE SURGEON DR. ÁNGEL STEWART [employer] SECURITY SCREENER NONE ANESTHESIA LOCAL PRE PROCEDURE NOTE THE PATIENT HAS A HISTORY OF CHRONIC LOW BACK PAIN. I EVALUATE THE PATIENT AND REVIEWED THE CHART. I WENT OVER THE RISKS, ALTERNATIVES, AND BENEFITS ASSOCIATED WITH THIS PROCEDURE. THE PATIENT WOULD LIKE TO PROCEED AND GIVE CONSENT TO PERFORMED THE PROCEDURE. THE PATIENT DENIES UNEXPLAINABLE WEIGHT LOSS, FEVER, CHILLS, OR NEW CHANGES IN URINARY OR BOWEL CONTROL DESCRIPTION OF PROCEDURE THE PATIENT WAS BROUGHT TO THE PROCEDURE ROOM AND PLACED IN THE PRONE POSITION. THE LUMBOSACRAL AREA WAS CLEANED WITH BETADINE SOLUTION AND DRAPED ASEPTICALLY. THE PROCEDURE WAS DONE UNDER STERILE CONDITIONS. I CHECKED LATERALITY AND THE LEVEL WHERE THE PROCEDURE WAS GOING TO BE PERFORMED WITH THE PATIENT AND THE SUPPORTING STAFF AT THE MOMENT OF THE TIME OUT IN THE PROCEDURE ROOM. UNDER FLUOROSCOPIC GUIDANCE, THE TARGET POINT WAS SELECTED AT THE INTERLAMINAR LEVEL OF L5-S1. LIDOCAINE WAS USED TO NUMB THE SKIN AND THE SUBCUTANEOUS TISSUE BELOW IT. EPIDURAL TUOHY NEEDLE, 17-GAUGE, WAS ADVANCED UNDER FLUOROSCOPIC GUIDANCE AND FOLLOWING PATIENT FEEDBACK UNTIL THE EPIDURAL SPACE WAS REACHED, 7 CM DEEP INTO THE SKIN BY THE LOSS OF RESISTANCE TECHNIQUE. ISOVUE M DYE 30%, 0.25 ML, WAS INJECTED SHOWING ADEQUATE SPREAD OF THE DYE. THEN, A SOLUTION OF 3 ML OF NORMAL SALINE WITH DEPO-MEDROL 60 MG WAS INJECTED SLOWLY FOLLOWING PATIENT FEEDBACK. THERE WAS NO EVIDENCE OF BLOOD, PARESTHESIA OR CEREBROSPINAL FLUID DURING THE PROCEDURE. THE PATIENT WAS SENT TO THE RECOVERY ROOM. THE PATIENT WAS MOVING THE EXTREMITIES AND DOING WELL. THERE WAS NO COMPLICATION DURING THE PROCEDURE. FLUOROSCOPY TIME WAS 9 SECONDS POST PROCEDURE NOTE THE PATIENT WILL BE SEEN IN A FOLLOW UP IN THE NEXT FEW WEEKS. INSTRUCTIONS WERE GIVEN, QUESTIONS WERE ANSWERED, AND THE PATIENT EXPRESSED UNDERSTANDING AND AGREES WITH THE PLAN. I, NUNO COWART, DOCUMENTED THE ABOVE INFORMATION ACTING A SCRIBE FOR DR. STEWART. I, DR. STEWART, HAVE REVIEWED THE ABOVE DOCUMENT, SCRIBED BY NUNO COWART, AND I VERIFY THAT IT IS ACCURATE DIAGNOSTIC IMAGING [facility] FLUORO GUIDE SPINE INJECTION (PAIN)[id number] PROCEDURE CODES 82220 LUMBAR/SACRAL W/ IMAGING 6045F RADXPS IN END [id number] PXD DISPOSITION & COMMUNICATION FOLLOW UP 3 WEEKS ELECTRONICALLY SIGNED BY ÁNGEL STEWART MD ON 07/01/2016 AT 05:33 PM EDT DISCLAIMER : THIS IS A VISIT SUMMARY EXTRACTED FROM THE [employer] CHART. IT IS NOT A COPY OF THE [employer] PROGRESS NOTE. MTDD
== END ==
LOC: M PAIN 08:40
PROVIDERS: ATTEND Anesthesiology
DX: G89.29 Other chronic pain (principal); M54.5 Low back pain; M51.17 Intervertebral disc disorders with radiculopathy, lumbosacral region; Z79.899 Other long term (current) drug therapy; I10 Essential (primary) hypertension; J45.20 Mild intermittent asthma, uncomplicated; E87.5 Hyperkalemia; E55.9 Vitamin D deficiency, unspecified; J30.2 Other seasonal allergic rhinitis
CPT/HCPCS: 62323; J1030; Q9967

== ENCOUNTER → 2016-08-21 | Outpatient (CLI) | payer MEDICARE ==
[~2016-08-21] MED LIST changes: +ASPI325T PO; +GABA-282 PO; -ISOVUE-M 300 61% 15ML VIAL (Q9967) As Ordered ONE; -LIDOCAINE 1% SDV INJ 30 ML VIAL As Ordered ONE; +MORP15TASA PO; +OMEP40CA2 PO; +PERC5TAB6 PO; +PRAV40TA2 PO; +VITA100037 PO; -diazePAM 5 MG TAB As Ordered ONE; -methylPREDNISolone SUSP 40 MG/ML (DEPO-medrol) VIAL (J1030) As Ordered ONE; -oxyCODONE 5MG TAB As Ordered ONE
[2016-08-21 14:17] LABS: ANION GAP 5 MEQ/L (8-16); BLOOD UREA NITROGEN 16 MG/DL (7-18); CALCIUM LEVEL 9.5 MG/DL (8.8-10.2); CARBON DIOXIDE LEVEL 30 MEQ/L (21-32); CHLORIDE LEVEL 105 MEQ/L (98-107); CREATININE FOR GFR 0.58 MG/DL (0.55-1.02); GLOMERULAR FILTRATION RATE > 60.0 (>39); GLUCOSE, FASTING 93 MG/DL (83-110); POTASSIUM SERUM 4.4 MEQ/L (3.5-5.1); SODIUM LEVEL 140 MEQ/L (136-145)
[2016-08-21 18:40] LABS: INR 0.95
== END ==
LOC: M LRY 10:55
PROVIDERS: ATTEND Orthopaedic Surgery
DX: Z01.818 Encounter for other preprocedural examination (principal); M48.06 Spinal stenosis, lumbar region; F41.9 Anxiety disorder, unspecified; Z79.899 Other long term (current) drug therapy; Z86.79 Personal history of other diseases of the circulatory system
CPT/HCPCS: 36415; 80053; 85018; 85027; 85610; 85730; 86850; 86900; 86901; 93005; G0463

== ENCOUNTER → 2016-08-21 | Outpatient (REF) | payer MEDICARE ==
[~2016-08-21] MED LIST changes: -ASPI325T PO; -MORP15TASA PO; -PERC5TAB6 PO
[2016-08-21 14:12] LABS: INR 0.95
[2016-08-21 14:13] LABS: MEAN CORPUSCULAR HEMOGLOBIN 31.9 pg (27.0-33.0); MEAN CORPUSCULAR HGB CONC 34.5 g/dl (32.0-36.5); MEAN CORPUSCULAR VOLUME 92.5 fl (80.0-96.0); RED CELL DISTRIBUTION WIDTH 12.5 % (11.5-14.5); WHITE BLOOD COUNT 6.2 K/mm3 (4.0-10.0)
[2016-08-21 14:34] LABS: ALBUMIN 4.2 GM/DL (3.2-5.2); ALBUMIN/GLOBULIN RATIO 1.27 (1.00-1.93); ALKALINE PHOSPHATASE 135 U/L (45-117); ALT/SGPT 69 U/L (12-78); ANION GAP 7 MEQ/L (8-16); AST/SGOT 41 U/L (15-37); BILIRUBIN,TOTAL 0.5 MG/DL (0.2-1.0); BLOOD UREA NITROGEN 16 MG/DL (7-18); CALCIUM LEVEL 9.4 MG/DL (8.8-10.2); CARBON DIOXIDE LEVEL 28 MEQ/L (21-32); CHLORIDE LEVEL 105 MEQ/L (98-107); GLOMERULAR FILTRATION RATE > 60.0 (>39); GLUCOSE, FASTING 92 MG/DL (83-110); POTASSIUM SERUM 4.4 MEQ/L (3.5-5.1); SODIUM LEVEL 140 MEQ/L (136-145); TOTAL PROTEIN 7.5 GM/DL (6.4-8.2)
== END ==
LOC: M SFHCLERA 10:35
PROVIDERS: ATTEND Family Medicine
DX: Z01.818 Encounter for other preprocedural examination (principal); M48.06 Spinal stenosis, lumbar region; F41.9 Anxiety disorder, unspecified; Z79.899 Other long term (current) drug therapy

== ENCOUNTER 2016-08-30 11:33 | Inpatient (IN) | payer MEDICARE ==
--- NOTE | 2016-08-24 10:31 | HPE ---
DATE OF ADMISSION: 08/30/2016 ATTENDING PHYSICIAN: Dr. Charles Camejo CHIEF COMPLAINT: Back pain, pain down both lower extremities. HISTORY: This is a pleasant 71-year-old female patient with progressively worsening back pain and pain radiating to both lower extremity. She has failed to improve with conservative management. She has elected for surgery for continued symptoms. She has consented for a right unilateral laminectomy L4-5 with fusion in situ at L4-5. She has pain in her back with activities of daily living. She is limited on how far she can walk secondary to bilateral leg symptoms. Medical optimization pending with Dr. Arthur. MRI consistent with spinal stenosis most significantly at L4-5 lesser degree at L2-3 and L3-4. There is degenerative changes at the L5-S1. ALLERGIES: NO KNOWN DRUG ALLERGIES. CURRENT MEDICATIONS: - vitamin D3 2000 units one tablet once per day - vitamin D3 1000 units one tablet once per day - Prilosec 40 mg one tablet once per day - paroxetine 20 mg one tablet once per day - [id number] mg one tablet once per day. - gabapentin 300 mg one tablet three times a day Medical history includes symptomatic spinal stenosis lumbar, hypertension, elevated cholesterol, gastric reflux disease. anxiety and aortic valve stenosis, mild. Surgical history: Appendectomy, tubal ligation. SOCIAL HISTORY: She does not smoke. She rarely uses alcohol. She is retired. FAMILY HISTORY: Noncontributory. REVIEW OF SYSTEMS: Denies fever or chills. Denies chest pain, shortness breath or cough. Denies difficulty breathing. Denies abdominal pain. Denies nausea or vomiting. Notes persistent pain with weightbearing activities and walking. Denies nausea or vomiting. Physical exam today reveals a well-nourished, well-developed alert female patient. She walks with a slow gait but it is not wide-based. She does not use assistive devices. Her mood and affect are appropriate for situation. Sits comfortably on the exam room table. Straight leg raise testing is negative. There is some diffuse tenderness along the lumbar spine without step-offs or deviations. Her skin is intact. No erythema, edema or ecchymosis. Well-perfused bilateral lower extremities. She is able to appreciate light touch in lower extremities on exam today. The neck is supple without adenopathy or jugular venous distention (JVD). Lungs are clear to auscultation without rales or wheeze. Heart: Regular rate and rhythm. Abdomen: Bowel sounds are present. Vital signs: Weight 187 pounds, height 5.5, temperature 98.0, pulse 84, respirations 116, blood pressure 162/90. LABORATORY DATA: Hemoglobin was 13.8, glucose 93. BUN 16, creatinine 0.58. Sodium 140, potassium 4.4, PT 12.8, INR 0.95. IMPRESSION: Symptomatic spinal stenosis of the lumbar spine primarily at L4-5. PLAN: Consented for a right unilateral laminectomy L4-5 with fusion in situ at L4-[address] Camejo.
[~2016-08-30] VITALS: Ht 167.6 cm; Wt 81.2 kg
[2016-08-30] MEDS: OMEPRAZOLE 20 MG CAP PO SCH (09:00)
[~2016-08-30 11:33] MED LIST changes: +HYDROmorphone HCL 2 MG/ML 1ML VIAL (J1170) As Ordered ONE; +LIDOCAINE 2% INJ 100 MG/5 ML SDV (FOR ANES.) As Ordered ONE; +MIDAZOLAM INJ 2 MG/2 ML VIAL (J2250) As Ordered ONE; +ONDANSETRON 4MG/2ML VIAL (J2405) As Ordered ONE; +PROPOFOL 200 MG/20 ML VIAL As Ordered ONE; +ROCURONIUM BROMIDE 50 MG/5 ML VIAL As Ordered ONE; +dexameTHASONE 4 MG/ML 1ML VIAL (J1100) As Ordered ONE; +fentaNYL 100 MCG/2 ML INJECTION (J3010) As Ordered ONE
[2016-08-30] MEDS ORDERED: PERCOCET 5MG/325MG TAB PO ONE (12:00)
[2016-08-30] MEDS ORDERED: GABAPENTIN 300 MG CAP PO ONE (12:00)
[2016-08-30] MEDS ORDERED: LR 1,000 ML IV ONE (12:00)
[2016-08-30] MEDS ORDERED: CelecoXIB (CeleBREX) 100 MG CAP PO ONE (12:00)
[2016-08-30] MEDS ORDERED: THROMBIN SOLN 20,000 UNITS KIT As Ordered ONE (12:21)
[2016-08-30] MEDS ORDERED: BACITRACIN PWD 50,000 UNITS VIAL As Ordered ONE (12:21)
[2016-08-30] MEDS ORDERED: BUPIVACAINE/EPIN 0.25% 30 ML VIAL As Ordered ONE (12:22)
[2016-08-30] MEDS ORDERED: ceFAZolin 2 GM/D5W 50 ML IV BAG (J0690) As Ordered ONE (12:48)
[2016-08-30] MEDS ORDERED: ROCURONIUM BROMIDE 50 MG/5 ML VIAL As Ordered ONE (13:58)
[2016-08-30] MEDS ORDERED: NEOSTIGMINE 1MG/ML 5 ML SYRINGE (J2710) As Ordered ONE (13:59)
[2016-08-30] MEDS ORDERED: PHENYLEPHRINE INJ 10MG/ML VIAL (J2370) As Ordered ONE (13:59)
--- NOTE | 2016-08-30 15:03 | REP ---
LUMBAR SPINE, ONE VIEW: HISTORY: Spinal stenosis. A single portable lateral radiograph was obtained. A metal probe is present overlying the neural arch at the L4-5 level. Signed by Jeffrey Root MD 08/30/2016 03:03 P
[2016-08-30] MEDS ORDERED: LR 1,000 ML IV SCH (16:30)
[2016-08-30] MEDS ORDERED: PERCOCET 5MG/325MG TAB PO PRN (16:30)
[2016-08-30] MEDS: D5W/0.45% SODIUM CHLORIDE 1,000 ML IV SCH (16:30)
[2016-08-30] MEDS ORDERED: MORPHINE 2 MG/ML 1ML SYRINGE IV PRN (16:30)
[2016-08-30] MEDS ORDERED: ACETAMINOPHEN TAB 650MG DOSE (2X325MG) PO PRN (16:30)
[2016-08-30] MEDS ORDERED: ONDANSETRON 4MG/2ML VIAL (J2405) IV PRN ×2 (16:30→19:00)
[2016-08-30] MEDS ORDERED: HYDROmorphone HCL 1 MG/ML SYRINGE (J1170) IV PRN (16:30)
[2016-08-30] MEDS ORDERED: TETRAHYDROZOLINE OPHTH 0.05% 15 ML BTL OU PRN (16:30)
[2016-08-30] MEDS ORDERED: fentaNYL 100 MCG/2 ML INJECTION (J3010) IV PRN (16:30)
[2016-08-30] MEDS ORDERED: LABETALOL HCL 100 MG/20 ML VIAL As Ordered ONE (16:38)
[2016-08-30] MEDS: LABETALOL HCL 100 MG/20 ML VIAL IV SCH ×4 (16:40→17:12)
[2016-08-30] MEDS: LOSARTAN 50 MG TAB PO SCH (17:25)
[2016-08-30 18:30] VITALS: BP 133/67
[2016-08-30 19:00] VITALS: BP 127/61
[2016-08-30] MEDS: PARoxetine 20 MG TAB PO SCH (19:55)
[2016-08-30] MEDS: CETIRIZINE (ZyrTEC) 10 MG TAB PO SCH (19:55)
[2016-08-30] MEDS: MOM 30ML SUSPENSION UDC PO SCH (19:55)
[2016-08-30] MEDS: PRAVASTATIN 20 MG TAB PO SCH (19:57)
[2016-08-30] MEDS: GABAPENTIN 300 MG CAP PO SCH (19:57)
[2016-08-30] MEDS: ASCORBIC ACID 500 MG TAB PO SCH (19:57)
[2016-08-30 20:00] VITALS: BP 119/62
--- NOTE | 2016-08-30 20:58 | CR.PDOC ---
[facility] Consultation Consultation DATE OF CONSULTATION: 08/30/16 REFERRING PROVIDER: Radames Centeno M.D. ATTENDING PHYSICIAN: Dr. Camejo REASON FOR CONSULTATION/CHIEF COMPLAINT: .Medical Co-Management HISTORY OF PRESENT ILLNESS: . 71-year-old female with past medical history of hypertension, dyslipidemia, GERD , anxiety, and spinal stenosis who was admitted to [facility] for a right unilateral laminectomy L4-L5 with fusion in situ at L4-L5. The hospitalist service has been consulted for further medical optimization following surgery. ALLERGIES: Please see below. HOME MEDICATIONS: Please see below. PAST MEDICAL HISTORY: As noted in HPI. PAST SURGICAL HISTORY: Appendectomy, tubal ligation. FAMILY HISTORY: Noncontributory SOCIAL HISTORY: Occasionally drink alcohol, denies tobacco or illicit drug use. Functionally independent at baseline. REVIEW OF SYSTEMS: 10 point review of systems negative unless otherwise specified in HPI. PHYSICAL EXAMINATION: VITAL SIGNS: Please see below. GENERAL APPEARANCE: . The patient is drowsy, and is unable to provide much information at this time as she has just received pain medication HEENT: . Normocephalic, atraumatic RESPIRATORY: . Clear to auscultation bilaterally CARDIOVASCULAR: . Normal rate, normal rhythm ABDOMEN: . Soft, nontender, nondistended EXTREMITIES: . No swelling, or erythema noted LABORATORY DATA: Please see below. ASSESSMENT/PLAN: s/p Right unilateral Laminectomy L4-L5 with Fusion in situ at L4-L5 Pain Mgmt and DVT prophylaxis as per primary team Hypertension, controlled The patient's the pressure was initially elevated following surgery, but has normalized following administration of pain medication Continue losartan I have added labetalol when necessary for systolic blood pressure 150 Possible Underlying CAROLINA? CAROLINA Protocol ordered Dyslipidemia Continue statin Depression/anxiety Continue SSRI GERD Continue PPI The patient will be followed by Dr. Deras starting 08/31/16 @ 7am should there be any further questions regarding the patient's medical management. Vital Signs/I&O Vital Signs Date Time Temp Pulse Resp B/P (MAP) Pulse Ox O2 Delivery O2 Flow Rate FiO2 08/30/16 18:01 92 96 08/30/16 18:00 97.6 156/70 (98) Nasal Cannula 2 08/30/16 17:21 16 Allergies Coded Allergies: No Known Drug Allergy (Verified Allergy, Unknown, 08/30/16) Home Medications Scheduled Gabapentin (Gabapentin) 300 Mg Cap, 300 MG PO TID, (Reported) Losartan Potassium (Cozaar) 100 Mg Tab, 100 MG PO DAILY, (Reported) Omeprazole (Omeprazole) 40 Mg Cap, 40 MG PO DAILY, (Reported) Paroxetine Hydrochloride (Paxil) 20 Mg Tab, 20 MG PO DAILY, (Reported) Pravastatin Sod (Pravastatin Sodium) 40 Mg Tab, 40 MG PO QHS, (Reported) Vitamin D (Vitamin D) 1,000 Unit Cap, 1,000 UNIT PO DAILY, (Reported) RADAMES CENTENO MD Aug 30, 2016 20:58
[2016-08-30] MEDS ORDERED: LABETALOL HCL 100 MG/20 ML VIAL IV SCH (21:00)
[2016-08-31] MEDS: PROMETHAZINE INJ 25 MG/ML VIAL (J2550) IV PRN ×2 (00:56→10:22)
[2016-08-31] MEDS: D5W/0.45% SODIUM CHLORIDE 1,000 ML IV SCH ×3 (02:30→20:20)
[2016-08-31 06:00] VITALS: BP 120/65
[2016-08-31] MEDS ORDERED: ONDANSETRON 4MG/2ML VIAL (J2405) IV ONE (07:20)
[2016-08-31 08:03] LABS: MEAN CORPUSCULAR HEMOGLOBIN 32.2 pg (27.0-33.0); MEAN CORPUSCULAR HGB CONC 34.2 g/dl (32.0-36.5); MEAN CORPUSCULAR VOLUME 94.1 fl (80.0-96.0); RED CELL DISTRIBUTION WIDTH 12.5 % (11.5-14.5); WHITE BLOOD COUNT 11.8 K/mm3 (4.0-10.0)
[2016-08-31 08:12] LABS: ANION GAP 4 MEQ/L (8-16); BLOOD UREA NITROGEN 12 MG/DL (7-18); CALCIUM LEVEL 7.6 MG/DL (8.8-10.2); CARBON DIOXIDE LEVEL 32 MEQ/L (21-32); CHLORIDE LEVEL 97 MEQ/L (98-107); CREATININE FOR GFR 0.68 MG/DL (0.55-1.02); GLOMERULAR FILTRATION RATE > 60.0 (>39); GLUCOSE, FASTING 138 MG/DL (83-110); POTASSIUM SERUM 4.4 MEQ/L (3.5-5.1); SODIUM LEVEL 133 MEQ/L (136-145)
[2016-08-31] MEDS: GABAPENTIN 300 MG CAP PO SCH ×3 (09:29→20:20)
[2016-08-31] MEDS: ASCORBIC ACID 500 MG TAB PO SCH ×2 (09:29→20:20)
[2016-08-31] MEDS: OMEPRAZOLE 20 MG CAP PO SCH (09:29)
[2016-08-31] MEDS: PERCOCET 5MG/325MG TAB PO PRN ×2 (09:29→14:59)
[2016-08-31] MEDS: PARoxetine 20 MG TAB PO SCH (09:30)
[2016-08-31] MEDS: LOSARTAN 50 MG TAB PO SCH (09:30)
[2016-08-31] MEDS: MOM 30ML SUSPENSION UDC PO SCH (09:30)
[2016-08-31] MEDS: CETIRIZINE (ZyrTEC) 10 MG TAB PO SCH (09:30)
[2016-08-31] MEDS: ASPIRIN ENTERIC 325 MG TAB PO SCH (09:30)
[2016-08-31 10:00] VITALS: BP 120/69
[2016-08-31 14:00] VITALS: BP 108/49
--- NOTE | 2016-08-31 15:05 | RO ---
DATE OF PROCEDURE: 08/30/2016 PREOPERATIVE DIAGNOSIS: Lumbar spinal stenosis at L4-5 with spondylosis and facette arthropathy. POSTOPERATIVE DIAGNOSIS: Lumbar spinal stenosis at L4-5 with spondylosis and facette arthropathy. PROCEDURE PERFORMED: Right unilateral laminectomy at L4 for decompression of the thecal sac and exiting and traversing nerve roots, right unilateral laminectomy L5 additional level, posterior L4-5 intertransverse fusion in situ, harvest and placement of local autograft for spine surgery, use of allograft bone for spine surgery. SURGEON: Charles Camejo MD PAPER FINISHER: Marc Starr PA-C ANESTHESIA: General endotracheal. ESTIMATED BLOOD LOSS: Less than 150 mL, replaced with crystalloid. COMPLICATIONS: No complications. INDICATIONS: 71-year-old female with lumbar spinal stenosis secondary to degenerative changes including facet hypertrophy, fluid-filled facettes, and lateral recess stenosis along with a central broad-based disk bulge at the L4-5 level. Next, the patient has elected for operative intervention. Consent reviewed in detail including a robert discussion of the pathology involved, the procedure proposed, alternatives including doing nothing and doing more invasive procedures such as instrumented fusion and risks including, but not limited to pain, failure, infection, bleeding, blood loss, need for more surgery and other issues. DESCRIPTION OF OPERATIVE COURSE: Identified in the holding area site side verified brought to the operating room. General endotracheal anesthesia was administered. She was positioned in the prone position for exposure of the lumbar spine. I began the procedure on the patient's right side; however, we did alternate through the course of the procedure. Once she was sterilely prepped and draped in the usual fashion and time-out was accomplished, we outlined the incision with a marking pen, made the incision with a #10 blade knife developed down through skin and subcuticular tissues to the posterior lumbar fascia. Next, the posterior lumbar fascia was opened the patient's right side. I identified the spinous process of 4-5 and continued the dissection down the spinous processes of 5 over the L5 lamina exposing the inferior L4 lamina. Next, we did drill a divot in the L4 lamina and then placed a Delong-Haris in the divot. Then we obtained a cross-table lateral x-ray to verify our level. Next, once this was accomplished the operating microscope was brought in for the procedure. Next, we also on the patient's left side, made an incision through the fascia and reflected paraspinal muscles laterally exposing the 4/5 facet on the patient's left side. Mr. Starr, utilizing Lesly retractors to assist in retraction of the paraspinal and then I exposed the transverse processes of 4 and 5 as well as the pars at 4/5/pars of 4. Bipolar cautery was utilized for hemostasis. Next, similarly on the patient's right side we dissected out to the transverse processes of 4 and 5 in the facet complex. Next, once this was accomplished we placed the shadow line retractor, the operating microscope was then utilized to visualize this area, Mr. Starr looked through oculars on the patient's left, I on the right. Leksell were utilized to remove posterior lamina of 4 and 5 and this was retained for bone graft. Next, a high-speed bur was utilized to implement a right unilateral laminectomy of L4, continuing superiorly to the bare area of 4, undercutting the spinous process of 4 inferiorly undercutting the spinous process of 5 in the superior lamina of 5. Ligamentum flavum was removed using curved curettes as well as Kerrison's. Quite significant lateral recess hypertrophy was appreciated and this was cleared using Kerrison's and curved curettes on the patient's right side. Once this was accomplished, I utilized curved curette to appreciate the extent of the stenosis on the patient's left side by probing over the horizon, I adjusted the operating microscope so that I could look at the tangent to the thecal sac and then obtained access to the hypertrophied ligamentum flavum which was removed using #2 Kerrison's as well as curved Kerrison's. Next, once I was comfortable that the lateral recess on the patient's left side was decompressed using this technique, we then irrigated and explored. We appreciated no active bleeding or CSF leak. Next, I appreciated the lateral recess to be patent and neural foramina were patent bilaterally. Next, once this was accomplished, the Lukens trap was emptied and Lukens trap autograft was mixed with donor allograft, crushed cancellus 15 mL. Also we utilized one dose of ViviGen allograft bone process. Next, Mr. Starr exposed the transverse processes for me, I decorticated the bilateral transverse processes using the high-speed bur then I placed ViviGen between the transverse processes of 4 and 5. Once the ViviGen was placed I then placed the local bone and donor bone composite over the top. On the patient's left side, the bone graft composite was placed over the transverse processes as well as in the interlaminar space and over the facette which was also decorticated. On the patient's right side where the laminectomy defect was present, the bone graft was placed lateral to the facet complex over the transverse processes of 4 and 5. Next, irrigation had been accomplished using saline solution as well as high con Baci. Next, all retractors were removed posterior lumbar fascia was reapproximated with interrupted stitch. Dermis was approximated using interrupted stitch. Prineo dressing was utilized on skin. The patient was moved to the recovery room in good condition. For further details please refer to the medical record. Mr. Starr was present and participated in the entirety of this case in the capacity of first aid teacher.
[2016-08-31] MEDS ORDERED: NALOXONE INJ 0.4 MG/1 ML VIAL (J2310) IV STA ×2 (17:44→19:45)
[2016-08-31 18:02] VITALS: BP 103/56
[2016-08-31] MEDS: PRAVASTATIN 20 MG TAB PO SCH (20:20)
[2016-08-31 20:43] LABS: FREE T4 1.43 NG/DL (0.76-1.46)
[2016-08-31] MEDS ORDERED: NALOXONE INJ 0.4 MG/1 ML VIAL (J2310) IV PRN (21:30)
[2016-08-31 22:00] VITALS: BP 102/54
--- NOTE | 2016-08-31 22:05 | IPN ---
DATE: 08/31/2016 The patient seen and examined at the bedside. Chart has been reviewed this morning. The patient complains of intractable pain in the back as well as persistent nausea and requesting medication. Denies any chest pain, pressure, tightness, shortness of breath, palpitations, tenderness, fever or chills overnight. The pain is described in the back with no radiation. No weakness of the lower extremities. No constipation or diarrhea. Temperature 98.7, pulse 84, respiratory rate 18, blood pressure 120/69, 90% on 2 liters nasal cannula. GENERAL: The patient is awake, alert, oriented times three. Answering questions appropriately. LUNGS: Clear to auscultation. No wheezing, rales or rhonchi. HEART: S1, S2, sinus rhythm. ABDOMEN: Soft, nontender, nondistended. Positive bowel sounds. EXTREMITIES: No cyanosis, clubbing or pitting edema. LABORATORY DATA: Are reviewed. IMAGING: Imaging studies are reviewed. IMPRESSION: 71-year-old female with a history of hypertension, dyslipidemia, reflux, anxiety, spinal stenosis admitted for right unilateral laminectomy L4-L5 with fusion in situ at L4-5. Hospitalist service was consulted for optimization prior to surgery. CURRENT ISSUES: 1. Right unilateral laminectomy L4-L5 with fusion in situ at L4-L5. Pain management, deep venous thrombosis (DVT) prophylaxis per primary team. 2. Hypertension, controlled. The patient has normalized. Labetalol was added. 3. Questionable obstructive sleep apnea (CAROLINA). CAROLINA protocol ordered. 4. Dyslipidemia. Continue statin. 5. Depression and anxiety, on selective serotonin reuptake inhibitors (SSRI). 6. Reflux. On proton pump inhibitor (PPI). 7. Intractable nausea and vomiting. As needed Zofran.
[2016-09-01 06:00] VITALS: BP 109/51
[2016-09-01] MEDS ORDERED: LACTULOSE 20 GM/30 ML SYRUP UD PO ONE (06:45)
[2016-09-01] MEDS: traMADol 50 MG TAB PO PRN ×4 (06:54→21:27)
[2016-09-01 07:00] LABS: ALBUMIN 3.1 GM/DL (3.2-5.2); ALBUMIN/GLOBULIN RATIO 0.97 (1.00-1.93); ALKALINE PHOSPHATASE 104 U/L (45-117); ALT/SGPT 44 U/L (12-78); ANION GAP 5 MEQ/L (8-16); AST/SGOT 49 U/L (15-37); BILIRUBIN,DIRECT 0.2 MG/DL (0.0-0.2); BILIRUBIN,TOTAL 0.6 MG/DL (0.2-1.0); BLOOD UREA NITROGEN 10 MG/DL (7-18); CALCIUM LEVEL 7.8 MG/DL (8.8-10.2); CARBON DIOXIDE LEVEL 30 MEQ/L (21-32); CHLORIDE LEVEL 101 MEQ/L (98-107); CREATININE FOR GFR 0.57 MG/DL (0.55-1.02); GLOMERULAR FILTRATION RATE > 60.0 (>39); GLUCOSE, FASTING 122 MG/DL (83-110); POTASSIUM SERUM 3.8 MEQ/L (3.5-5.1); SODIUM LEVEL 136 MEQ/L (136-145); TOTAL PROTEIN 6.3 GM/DL (6.4-8.2)
[2016-09-01 07:15] LABS: INR 1.11
[2016-09-01 07:18] LABS: MEAN CORPUSCULAR HEMOGLOBIN 31.7 pg (27.0-33.0); MEAN CORPUSCULAR HGB CONC 34.1 g/dl (32.0-36.5); MEAN CORPUSCULAR VOLUME 92.8 fl (80.0-96.0); RED CELL DISTRIBUTION WIDTH 12.6 % (11.5-14.5)
[2016-09-01] MEDS: D5W/0.45% SODIUM CHLORIDE 1,000 ML IV SCH ×3 (08:30→23:30)
[2016-09-01] MEDS: PARoxetine 20 MG TAB PO SCH (09:00)
[2016-09-01] MEDS: LOSARTAN 50 MG TAB PO SCH (09:00)
[2016-09-01] MEDS: MOM 30ML SUSPENSION UDC PO SCH (09:00)
[2016-09-01] MEDS: LACTULOSE 20 GM/30 ML SYRUP UD PO SCH ×2 (09:00→09:30)
[2016-09-01] MEDS: GABAPENTIN 300 MG CAP PO SCH ×3 (09:01→21:21)
[2016-09-01] MEDS: ASPIRIN ENTERIC 325 MG TAB PO SCH (09:01)
[2016-09-01] MEDS: OMEPRAZOLE 20 MG CAP PO SCH (09:01)
[2016-09-01] MEDS: CETIRIZINE (ZyrTEC) 10 MG TAB PO SCH (09:01)
[2016-09-01] MEDS: ASCORBIC ACID 500 MG TAB PO SCH ×2 (09:01→21:21)
[2016-09-01 14:00] VITALS: BP 130/63
[2016-09-01] MEDS: KETOROLAC 30 MG/ML VIAL (J1885) IV PRN (19:08)
[2016-09-01] MEDS: PRAVASTATIN 20 MG TAB PO SCH (21:21)
[2016-09-01 22:00] VITALS: BP 118/59
[2016-09-02] MEDS: KETOROLAC 30 MG/ML VIAL (J1885) IV PRN (01:09)
--- NOTE | 2016-09-02 03:38 | IPN ---
DATE OF SERVICE: 09/01/2016 Patient had increasing confusion yesterday requiring Narcan in order to improve her mental status. There was a slight improvement. Ammonia level was slightly elevated at 55. Workup included comprehensive panel including liver function test and hepatitis serology, as well as DAVID. This morning, patient complains of severe pain status post laminectomy. She is currently on tramadol. Lactulose has been given this morning. Some nausea, but no vomiting. Temperature 99.6, pulse 96, respiratory rate 18, blood pressure 109/51, 1 liter nasal cannula. GENERAL: Awake, alert, oriented times three. Answering questions appropriately. She is much improved. LUNGS: Clear to auscultation. No wheezing, rales or rhonchi. HEART: S1, S2, sinus rhythm. ABDOMEN: Soft, nontender, nondistended. Positive bowel sounds. EXTREMITIES: No cyanosis, clubbing or any pitting edema. SKIN: Patient has postoperative changes on the right lumbar parasternal. Patient's surgical scar appears to be dry. No erythema. No drainage. LABORATORY DATA: White count 12, hemoglobin 11, hematocrit 33, platelet count 207. Sodium 136, potassium 3.8, chloride 101, bicarbonate 30, BUN 10, creatinine 0.57, glucose 122, calcium 7.8, total bilirubin 0.6, direct bilirubin 0.2, AST 49, ALT 44, alkaline phosphatase 104, ammonia level repeated is 32. TSH is 0.32, free T4 1.43 and T3 of 2.1. ASSESSMENT AND PLAN: This is a 71-year-old female with a history of hypertension, dyslipidemia, reflux, anxiety, spinal stenosis, admitted for right unilateral laminectomy L4-L5 with fusion in situ at L4-L5. Hospitalist service was consulted for optimization prior to surgery. During the hospital stay, patient developed acute encephalopathy thought to be secondary to pain medications, intravenous Dilaudid, received two doses of Narcan with some improvement. Ammonia level was slightly elevated at 55, received two doses of lactulose. CURRENT ISSUES: 1. Right unilateral laminectomy L4-L5 with fusion in situ at L4-L5. Pain management, deep venous thrombosis (DVT) prophylaxis per primary team. At this time, receiving tramadol due to recent use of Dilaudid causing encephalopathy requiring two doses of Narcan. 2. Acute encephalopathy secondary to Dilaudid status post Narcan times two doses. Currently on tramadol for pain control. Ammonia level slightly elevated at 55 with repeat level of 32. Patient did receive two doses of lactulose. She currently has workup for possible liver disease with hepatitis serology, DAVID. Liver function tests are not truly remarkable. 3. Questionable obstructive sleep apnea (CAROLINA). CAROLINA protocol ordered. 4. Hypertension. Controlled with labetalol. 5. Dyslipidemia. On statin. 6. Depression and anxiety, on selective serotonin reuptake inhibitors (SSRI). 7. Reflux. On proton pump inhibitor (PPI).
[2016-09-02] MEDS: traMADol 50 MG TAB PO PRN ×2 (05:48→10:41)
[2016-09-02 05:59] LABS: MEAN CORPUSCULAR HEMOGLOBIN 31.9 pg (27.0-33.0); MEAN CORPUSCULAR HGB CONC 34.2 g/dl (32.0-36.5); MEAN CORPUSCULAR VOLUME 93.2 fl (80.0-96.0); RED CELL DISTRIBUTION WIDTH 12.4 % (11.5-14.5); WHITE BLOOD COUNT 10.5 K/mm3 (4.0-10.0)
[2016-09-02 06:00] VITALS: BP 134/62
[2016-09-02 06:38] LABS: ANION GAP 6 MEQ/L (8-16); BLOOD UREA NITROGEN 10 MG/DL (7-18); CALCIUM LEVEL 8.5 MG/DL (8.8-10.2); CARBON DIOXIDE LEVEL 30 MEQ/L (21-32); CHLORIDE LEVEL 104 MEQ/L (98-107); CREATININE FOR GFR 0.55 MG/DL (0.55-1.02); GLOMERULAR FILTRATION RATE > 60.0 (>39); GLUCOSE, FASTING 104 MG/DL (83-110); POTASSIUM SERUM 3.5 MEQ/L (3.5-5.1); SODIUM LEVEL 140 MEQ/L (136-145)
[2016-09-02] MEDS: ASPIRIN ENTERIC 325 MG TAB PO SCH (10:40)
[2016-09-02] MEDS: LOSARTAN 50 MG TAB PO SCH (10:40)
[2016-09-02] MEDS: GABAPENTIN 300 MG CAP PO SCH ×3 (10:41→21:06)
[2016-09-02] MEDS: PARoxetine 20 MG TAB PO SCH (10:41)
[2016-09-02] MEDS: CETIRIZINE (ZyrTEC) 10 MG TAB PO SCH (10:41)
[2016-09-02] MEDS: ASCORBIC ACID 500 MG TAB PO SCH ×2 (10:41→21:06)
[2016-09-02] MEDS: OMEPRAZOLE 20 MG CAP PO SCH (10:42)
[2016-09-02] MEDS: MOM 30ML SUSPENSION UDC PO SCH (10:42)
[2016-09-02 14:00] VITALS: BP 129/61
[2016-09-02] MEDS: D5W/0.45% SODIUM CHLORIDE 1,000 ML IV SCH ×2 (14:30→21:07)
[2016-09-02] MEDS: ALPRAZolam 0.25 MG TAB PO PRN (16:00)
[2016-09-02] MEDS: CYCLOBENZAPRINE 10 MG TAB PO SCH (21:06)
[2016-09-02] MEDS: PRAVASTATIN 20 MG TAB PO SCH (21:06)
[2016-09-02 22:00] VITALS: BP 97/53
[2016-09-03 06:00] VITALS: BP 126/59
[2016-09-03 07:15] LABS: MEAN CORPUSCULAR HGB CONC 34.3 g/dl (32.0-36.5); MEAN CORPUSCULAR VOLUME 93.4 fl (80.0-96.0); RED CELL DISTRIBUTION WIDTH 12.4 % (11.5-14.5); WHITE BLOOD COUNT 7.1 K/mm3 (4.0-10.0)
[2016-09-03 07:37] LABS: ANION GAP 5 MEQ/L (8-16); BLOOD UREA NITROGEN 12 MG/DL (7-18); CALCIUM LEVEL 8.3 MG/DL (8.8-10.2); CARBON DIOXIDE LEVEL 30 MEQ/L (21-32); CHLORIDE LEVEL 107 MEQ/L (98-107); GLOMERULAR FILTRATION RATE > 60.0 (>39); GLUCOSE, FASTING 107 MG/DL (83-110); POTASSIUM SERUM 3.6 MEQ/L (3.5-5.1); SODIUM LEVEL 142 MEQ/L (136-145)
[2016-09-03] MEDS: ASPIRIN ENTERIC 325 MG TAB PO SCH (08:41)
[2016-09-03] MEDS: GABAPENTIN 300 MG CAP PO SCH ×3 (08:41→20:48)
[2016-09-03] MEDS: ASCORBIC ACID 500 MG TAB PO SCH ×2 (08:41→20:47)
[2016-09-03] MEDS: ALPRAZolam 0.25 MG TAB PO PRN (08:41)
[2016-09-03] MEDS: OMEPRAZOLE 20 MG CAP PO SCH (08:41)
[2016-09-03] MEDS: LOSARTAN 50 MG TAB PO SCH (08:42)
[2016-09-03] MEDS: traMADol 50 MG TAB PO PRN ×2 (08:42→16:24)
[2016-09-03] MEDS: PARoxetine 20 MG TAB PO SCH (08:42)
[2016-09-03] MEDS: CYCLOBENZAPRINE 10 MG TAB PO SCH ×3 (08:42→20:48)
[2016-09-03] MEDS: CETIRIZINE (ZyrTEC) 10 MG TAB PO SCH (08:42)
[2016-09-03] MEDS: MOM 30ML SUSPENSION UDC PO SCH (08:43)
[2016-09-03 14:00] VITALS: BP 128/57
--- NOTE | 2016-09-03 15:51 | REP ---
AP AND LATERAL LUMBAR SPINE: 09/03/2016. Comparison: Intraoperative cross-table view 08/30/2016. Clinical history: Back pain, status post surgery 08/30 with hip and back symptoms. Findings: The pedicles, spinous and transverse processes in the AP view were intact. Short twelfth ribs are noted. There is no scoliosis or abnormal kyphosis. There is some loss of the normal lordosis on the lateral view, which could be due to positioning or muscle spasm. Vascular calcifications of the aorta are noted without aneurysm. The disc space heights show slight narrowing from L2-3 through L4-5 maintained at the other two levels. Facet arthropathy at L4-5 and L5-S1 without spondylolysis. No spondylolisthesis. SI joints with minor sclerosis but no erosions. Sacral ala and foramina intact. Iliac wings intact. Impression: 1. Mild degenerative disc changes with very slight disc space narrowing from L2-3 through L4-L5, the another levels maintain normal height. 2. No compression deformity or malalignment. The loss of lordosis may reflect some mild spasm. No other finding. Signed by Ernesto Kennedy MD 09/04/2016 03:52 P
[2016-09-03] MEDS: PRAVASTATIN 20 MG TAB PO SCH (20:47)
[2016-09-03 22:00] VITALS: BP 130/71
[2016-09-04 06:00] VITALS: BP 128/60
[2016-09-04 06:58] LABS: MEAN CORPUSCULAR HEMOGLOBIN 31.9 pg (27.0-33.0); MEAN CORPUSCULAR HGB CONC 34.2 g/dl (32.0-36.5); MEAN CORPUSCULAR VOLUME 93.4 fl (80.0-96.0); RED CELL DISTRIBUTION WIDTH 12.2 % (11.5-14.5); WHITE BLOOD COUNT 7.4 K/mm3 (4.0-10.0)
[2016-09-04 07:22] LABS: ANION GAP 7 MEQ/L (8-16); BLOOD UREA NITROGEN 11 MG/DL (7-18); CALCIUM LEVEL 8.5 MG/DL (8.8-10.2); CARBON DIOXIDE LEVEL 29 MEQ/L (21-32); CHLORIDE LEVEL 105 MEQ/L (98-107); CREATININE FOR GFR 0.47 MG/DL (0.55-1.02); GLOMERULAR FILTRATION RATE > 60.0 (>39); GLUCOSE, FASTING 103 MG/DL (83-110); SODIUM LEVEL 141 MEQ/L (136-145)
[2016-09-04] MEDS ORDERED: PERCOCET 5MG/325MG TAB PO PRN (08:45)
[2016-09-04] MEDS: MOM 30ML SUSPENSION UDC PO SCH (09:50)
[2016-09-04] MEDS: GABAPENTIN 300 MG CAP PO SCH ×3 (10:12→20:34)
[2016-09-04] MEDS: PARoxetine 20 MG TAB PO SCH (10:13)
[2016-09-04] MEDS: OMEPRAZOLE 20 MG CAP PO SCH (10:13)
[2016-09-04] MEDS: CETIRIZINE (ZyrTEC) 10 MG TAB PO SCH (10:13)
[2016-09-04] MEDS: ASPIRIN ENTERIC 325 MG TAB PO SCH (10:13)
[2016-09-04] MEDS: ASCORBIC ACID 500 MG TAB PO SCH ×2 (10:13→20:34)
[2016-09-04] MEDS: CYCLOBENZAPRINE 10 MG TAB PO SCH ×3 (10:13→20:34)
[2016-09-04] MEDS: LOSARTAN 50 MG TAB PO SCH (10:14)
[2016-09-04] MEDS: MORPHINE 15 MG SA TAB PO SCH ×2 (10:14→20:34)
[2016-09-04 14:00] VITALS: BP 147/67
[2016-09-04] MEDS: PERCOCET 5MG/325MG TAB PO PRN (16:36)
--- NOTE | 2016-09-04 16:37 | IPNPDOC ---
Text Note Date of Service The patient was seen on 09/04/16. NOTE Subjective: Patient is a 71 year old female with a PMHx of Spinal stenosis, HTN, DLP, GERD, Anxiety, Aortic valve stenosis who presented with worsening back pain and pain radiating to both LE. She failed to improved medically and was scheduled for a laminectomy of L4-L5 and fusion in situ Patient was seen and examined at the bedside. Currently she still notes pain in her back with radiation down her right leg. Objective: Vitals (See below) General: Lying in bed, no acute distress, comfortable, AAOx3 HEENT: NC, AT CVS: RRR, +S1S2 Lungs: Fair air entry b/l, -w/r/r Abdomen: Soft, ND, NT, +BSx4 Extremities: +PPx4, - Edema, - Calf tenderness Assessment and plan: 1. Right unilateral laminectomy at L4-L5 with fusion in situ at L4-L5 - Reports that she is still having pain in the area - currently on MS Contin, Tramadol PRN, and Percocet PRN - Management as per primary team 2. s/p Acute metabolic encephalopathy - possibly 2/2 medications (opiates), possibly 2/2 elevated ammonia - Currently AAOx3 - Has mild response to Narcan - Ammonia level was elevated - Hepatitis panel negative - DAVID negative - s/p Lacutlose - Avoid excessive pain medications 3. CAROLINA - c/w CAROLINA protocol 4. HTN - c/w Labetolol and Diltiazem 5. DLP - c/w Pravastatin 6. Depression and Anxiety - c/w Paroxetine 7. GERD - c/w Omeprazole 8. DVT prophylaxis - c/w SCDs VS,Fishbone, I+O VS, Fishbone, I+O Laboratory Tests 09/04/16 06:28 Red Blood Count 3.70 L, Mean Corpuscular Volume 93.4, Mean Corpuscular Hemoglobin 31.9, Mean Corpuscular Hemoglobin Concent 34.2, Red Cell Distribution Width 12.2, Calcium Level 8.5 L Vital Signs Date Time Temp Pulse Resp B/P (MAP) Pulse Ox O2 Delivery O2 Flow Rate FiO2 09/04/16 14:00 98.4 97 18 147/67 (93) 96 Room Air 09/02/16 01:58 1.0 I&O- Last 24 Hours up to 6 AM 09/04/16 05:59 Intake Total 1200 ml Output Total 0 ml Balance 1200 ml RENETTA STONE MD Sep 04, 2016 16:37
[2016-09-04] MEDS: PRAVASTATIN 20 MG TAB PO SCH (20:34)
--- NOTE | 2016-09-04 21:14 | ECHO ---
DATE OF PROCEDURE: 09/04/2016 REFERRING PHYSICIAN: Dr. Hopkins INDICATION: Heart murmur. HEIGHT: 168 cm WEIGHT: 81 kg DIMENSIONS: IVS: 1.3 LV: 4.5 LVPW: 1.3 LA: 3.7 Aorta: 3.1 FINDINGS: The study is of fair technical quality. The patient was in sinus rhythm. Left ventricle is normal size and has hyperdynamic contractility with estimated LVEF 65-70%. Mild LVH is noted. Right ventricle does not appear enlarged. Both atria appear grossly normal. Aortic valve is sclerotic, but has preserved mobility. Mitral tricuspid and pulmonic valves appear normal. No pericardial effusion is noted. Inferior vena cava is normal size. Aortic root is normal. Aortic arch and abdominal aorta were not well seen. Doppler interrogation reveals no aortic stenosis or insufficiency. There is trace mitral and trace tricuspid insufficiency. Calculated pulmonary artery pressure is within normal limits. Pulmonic valve is also functionally competent. Mitral inflow pattern and tissue Doppler imaging of mitral annulus reveal grade 1 diastolic dysfunction. CONCLUSIONS: 1. The study is of fair technical quality. 2. Normal LV size with mild LVH and hyperdynamic LV systolic function. Grade 1 diastolic dysfunction. 3. No significant valvular disease. 4. Normal central venous pressure and likely normal pulmonary artery pressure. COMMENT: Subacute bacterial endocarditis (SBE) prophylaxis is not recommended. Overall study most consistent with mild form of hypertensive heart disease.
[2016-09-04 22:00] VITALS: BP 140/65
[2016-09-05 06:00] VITALS: BP 126/58
[2016-09-05 06:55] LABS: MEAN CORPUSCULAR HGB CONC 33.2 g/dl (32.0-36.5); MEAN CORPUSCULAR VOLUME 93.2 fl (80.0-96.0); RED CELL DISTRIBUTION WIDTH 12.1 % (11.5-14.5); WHITE BLOOD COUNT 7.6 K/mm3 (4.0-10.0)
[2016-09-05 07:07] LABS: ANION GAP 4 MEQ/L (8-16); BLOOD UREA NITROGEN 11 MG/DL (7-18); CALCIUM LEVEL 8.6 MG/DL (8.8-10.2); CARBON DIOXIDE LEVEL 31 MEQ/L (21-32); CHLORIDE LEVEL 104 MEQ/L (98-107); CREATININE FOR GFR 0.52 MG/DL (0.55-1.02); GLOMERULAR FILTRATION RATE > 60.0 (>39); GLUCOSE, FASTING 97 MG/DL (83-110); POTASSIUM SERUM 4.5 MEQ/L (3.5-5.1); SODIUM LEVEL 139 MEQ/L (136-145)
[2016-09-05] MEDS: ASPIRIN ENTERIC 325 MG TAB PO SCH (09:28)
[2016-09-05] MEDS: ASCORBIC ACID 500 MG TAB PO SCH ×2 (09:29→21:54)
[2016-09-05] MEDS: LOSARTAN 50 MG TAB PO SCH (09:29)
[2016-09-05] MEDS: OMEPRAZOLE 20 MG CAP PO SCH (09:29)
[2016-09-05] MEDS: GABAPENTIN 300 MG CAP PO SCH ×3 (09:29→21:55)
[2016-09-05] MEDS: MOM 30ML SUSPENSION UDC PO SCH (09:30)
[2016-09-05] MEDS: MORPHINE 15 MG SA TAB PO SCH ×2 (09:30→21:56)
[2016-09-05] MEDS: CETIRIZINE (ZyrTEC) 10 MG TAB PO SCH (09:30)
[2016-09-05] MEDS: PARoxetine 20 MG TAB PO SCH (09:30)
[2016-09-05] MEDS: CYCLOBENZAPRINE 10 MG TAB PO SCH ×3 (09:30→21:56)
--- NOTE | 2016-09-05 10:51 | IPNPDOC ---
Text Note Date of Service The patient was seen on 09/05/16. NOTE Subjective: Patient is a 71 year old female with a PMHx of Spinal stenosis, HTN, DLP, GERD, Anxiety, Aortic valve stenosis who presented with worsening back pain and pain radiating to both LE. She failed to improved medically and was scheduled for a laminectomy of L4-L5 and fusion in situ Patient was seen and examined at the bedside. She notes that her pain is still persistent, but there has been improvement since her pain medications were adjusted. Objective: Vitals (See below) General: Lying in bed, no acute distress, comfortable, AAOx3 HEENT: NC, AT CVS: RRR, +S1S2 Lungs: Fair air entry b/l, -w/r/r Abdomen: Soft, ND, NT, +BSx4 Extremities: +PPx4, - Edema, - Calf tenderness Assessment and plan: 1. Right unilateral laminectomy at L4-L5 with fusion in situ at L4-L5 - Reports that she is still having pain in the area - currently on MS Contin and Percocet PRN - Will continue with physical therapy; may be transitioned to [facility] - Management as per primary team 2. s/p Acute metabolic encephalopathy - possibly 2/2 medications (opiates), possibly 2/2 elevated ammonia - Currently AAOx3 - Has mild response to Narcan - Ammonia level was elevated - Hepatitis panel negative - DAVID negative - s/p Lactulose - Avoid excessive pain medications 3. CAROLINA - c/w CAROLINA protocol 4. HTN - BP well controlled - c/w Labetalol and Diltiazem 5. DLP - c/w Pravastatin 6. Depression and Anxiety - c/w Paroxetine 7. GERD - c/w Omeprazole 8. DVT prophylaxis - c/w SCDs VS,Fishbone, I+O VS, Fishbone, I+O Laboratory Tests 09/05/16 06:34 Red Blood Count 3.78 L, Mean Corpuscular Volume 93.2, Mean Corpuscular Hemoglobin 31.0, Mean Corpuscular Hemoglobin Concent 33.2, Red Cell Distribution Width 12.1, Calcium Level 8.6 L Vital Signs Date Time Temp Pulse Resp B/P (MAP) Pulse Ox O2 Delivery O2 Flow Rate FiO2 09/05/16 09:30 18 Room Air 09/05/16 09:29 126/58 09/05/16 06:00 97.8 89 94 09/02/16 01:58 1.0 I&O- Last 24 Hours up to 6 AM 09/05/16 05:59 Intake Total 600 ml Output Total 950 ml Balance -350 ml RENETTA STONE MD Sep 05, 2016 10:51
[2016-09-05 14:00] VITALS: BP 128/65
[2016-09-05] MEDS: PRAVASTATIN 20 MG TAB PO SCH (21:56)
[2016-09-05 22:00] VITALS: BP 105/51
[2016-09-06 06:00] VITALS: BP 128/69
[2016-09-06] MEDS: PERCOCET 5MG/325MG TAB PO PRN (06:53)
[2016-09-06] MEDS ORDERED: PERC5TAB6 PO (07:05)
[2016-09-06] MEDS ORDERED: MORP15TASA PO (07:05)
[2016-09-06] MEDS ORDERED: ASPI325T PO (07:05)
[2016-09-06] MEDS: MORPHINE 15 MG SA TAB PO SCH (09:07)
[2016-09-06] MEDS: PARoxetine 20 MG TAB PO SCH (09:07)
[2016-09-06] MEDS: ASPIRIN ENTERIC 325 MG TAB PO SCH (09:07)
[2016-09-06] MEDS: OMEPRAZOLE 20 MG CAP PO SCH (09:07)
[2016-09-06] MEDS: CYCLOBENZAPRINE 10 MG TAB PO SCH (09:07)
[2016-09-06] MEDS: GABAPENTIN 300 MG CAP PO SCH (09:07)
[2016-09-06] MEDS: CETIRIZINE (ZyrTEC) 10 MG TAB PO SCH (09:07)
[2016-09-06 09:08] VITALS: BP 128/69
[2016-09-06] MEDS: LOSARTAN 50 MG TAB PO SCH (09:08)
[2016-09-06] MEDS: MOM 30ML SUSPENSION UDC PO SCH (09:08)
[2016-09-06] MEDS: ASCORBIC ACID 500 MG TAB PO SCH (09:08)
--- NOTE | 2016-09-06 13:28 | IPNPDOC ---
Text Note Date of Service The patient was seen on 09/06/16. NOTE Subjective: Patient is a 71 year old female with a PMHx of Spinal stenosis, HTN, DLP, GERD, Anxiety, Aortic valve stenosis who presented with worsening back pain and pain radiating to both LE. She failed to improved medically and was scheduled for a laminectomy of L4-L5 and fusion in situ Patient was seen and examined at the bedside. She notes her pain has improved and she has made progress with physical therapy. Objective: Vitals (See below) General: Lying in bed, no acute distress, comfortable, AAOx3 HEENT: NC, AT CVS: RRR, +S1S2 Lungs: Fair air entry b/l, -w/r/r Abdomen: Soft, ND, NT, +BSx4 Extremities: +PPx4, - Edema, - Calf tenderness Assessment and plan: 1. Right unilateral laminectomy at L4-L5 with fusion in situ at L4-L5 - Reports that she is still having pain in the area; but very mild compared to initially - Physical therapy has evaluated her and she has made significant improvements, they have cleared for discharge home - Management as per primary team 2. s/p Acute metabolic encephalopathy - possibly 2/2 medications (opiates), possibly 2/2 elevated ammonia - Currently AAOx3 - Has mild response to Narcan - Ammonia level was elevated - Hepatitis panel negative - DAVID negative - s/p Lactulose - Avoid excessive pain medications 3. CAROLINA - c/w CAROLINA protocol 4. HTN - BP well controlled - c/w Labetalol and Diltiazem - on discharge will return to home medications 5. DLP - c/w Pravastatin 6. Depression and Anxiety - c/w Paroxetine 7. GERD - c/w Omeprazole 8. DVT prophylaxis - c/w SCDs VS,Fishbone, I+O VS, Fishbone, I+O Vital Signs Date Time Temp Pulse Resp B/P (MAP) Pulse Ox O2 Delivery O2 Flow Rate FiO2 09/06/16 09:08 128/69 09/06/16 09:07 18 09/06/16 06:00 97.1 84 92 Room Air 09/02/16 01:58 1.0 I&O- Last 24 Hours up to 6 AM 09/06/16 06:00 Intake Total 360 ml Output Total 1000 ml Balance -640 ml RENETTA STONE MD Sep 06, 2016 13:28
--- NOTE | 2016-09-11 10:29 | DSES ---
DATE OF ADMISSION: 08/30/2016 DATE OF DISCHARGE: 09/06/2016 ATTENDING PHYSICIAN: Dr. Camejo. ADMITTING DIAGNOSIS: Lumbar spinal stenosis. OTHER DIAGNOSES: Hypertension. Elevated cholesterol. Gastric reflux disease. Anxiety. Aortic valve stenosis. DISCHARGE DIAGNOSIS: Lumbar spinal stenosis most significant at L4-5. Status post right unilateral laminectomy L4-5 and fusion in situ L4-5. OPERATION PERFORMED: Right unilateral laminectomy L4-5 and fusion in situ L4-5. HISTORY: This is a pleasant 71-year-old female patient with progressively worsening back pain and pain down both legs. She continued to struggle with her symptoms despite conservative management to include physical therapy, progressed activity modification. She continued to be symptomatic. She elected for surgery for her continued symptoms. She was admitted for elective right unilateral laminectomy L4-5 with fusion in situ at L4-5. HOSPITAL COURSE: The patient was admitted on day of surgery and underwent a right unilateral laminectomy at L4-5 with fusion in situ at L4-5. There is no complications during the surgery but during her hospital stay, she did develop acute metabolic encephalopathy with question of whether it was secondary to pain medications or to her elevated ammonia level. She went through a thorough workup with results were unremarkable and her symptoms improved with conservative management to include modification of her opiate use. On day of discharge, her pain was controlled. Her symptoms had improved. She was up with physical therapy per their protocol. She will resume her preoperative medications and diet. She was given instructions to include but not limited to wound monitoring and activity limitations. She will use oral pain medications for pain control. She will follow up in our office in 7-10 days for surgical followup. Please refer to the medical record for details.
== END 2016-09-06 11:18 | disposition home health service (06) | DRG 459 ==
LOC: M OR 11:33 → M MS5PR 18:25
PROVIDERS: ADMIT Orthopaedic Surgery; ATTEND Orthopaedic Surgery
PROC: 00NY0ZZ Release Lumbar Spinal Cord, Open Approach (ICD-10-PCS; 2016-08-30)
PROC: 01NB0ZZ Release Lumbar Nerve, Open Approach (ICD-10-PCS; 2016-08-30)
PROC: 0SG1071 Fusion of 2 or more Lumbar Vertebral Joints with Autologous Tissue Substitute, Posterior Approach, Posterior Column, Open Approach (ICD-10-PCS; principal; 2016-08-30 13:30)
DX: M48.06 Spinal stenosis, lumbar region (principal); G93.41 Metabolic encephalopathy; I10 Essential (primary) hypertension; E78.5 Hyperlipidemia, unspecified; F32.9 Major depressive disorder, single episode, unspecified; G47.33 Obstructive sleep apnea (adult) (pediatric); K21.9 Gastro-esophageal reflux disease without esophagitis; R26.89 Other abnormalities of gait and mobility; T40.2X5A Adverse effect of other opioids, initial encounter; R11.0 Nausea; M47.816 Spondylosis without myelopathy or radiculopathy, lumbar region; F41.9 Anxiety disorder, unspecified; I35.0 Nonrheumatic aortic (valve) stenosis; Z79.899 Other long term (current) drug therapy

== ENCOUNTER 2016-09-08 08:30 | Emergency (ER) | payer MEDICARE ==
[~2016-09-08] VITALS: Ht 167.6 cm; Wt 79.1 kg
[~2016-09-08 08:30] MED LIST changes: +ASPI325T PO; -HYDROmorphone HCL 2 MG/ML 1ML VIAL (J1170) As Ordered ONE; -LIDOCAINE 2% INJ 100 MG/5 ML SDV (FOR ANES.) As Ordered ONE; -MIDAZOLAM INJ 2 MG/2 ML VIAL (J2250) As Ordered ONE; +MORP15TASA PO; -ONDANSETRON 4MG/2ML VIAL (J2405) As Ordered ONE; +PAXI20TA29 PO; +PERC5TAB12 PO; -PROPOFOL 200 MG/20 ML VIAL As Ordered ONE; -ROCURONIUM BROMIDE 50 MG/5 ML VIAL As Ordered ONE; -VITA100037 PO; +VITA100067 PO; -dexameTHASONE 4 MG/ML 1ML VIAL (J1100) As Ordered ONE; -fentaNYL 100 MCG/2 ML INJECTION (J3010) As Ordered ONE
[2016-09-08] MEDS ORDERED: MORPHINE 2 MG/ML 1ML SYRINGE IV ONE (09:45)
[2016-09-08] MEDS ORDERED: MORPHINE 4 MG/ML 1ML SYRINGE IV ONE ×2 (10:45→11:30)
--- NOTE | 2016-09-08 10:55 | REP ---
AP PELVIS AND RIGHT HIP: 09/08/2016 CLINICAL HISTORY: Trauma. Fell on right hip. FINDINGS: No prior studies. The pelvis demonstrates an intact symphysis pubis and pubic rami. The pelvic ring was preserved. The SI joints symmetric. Sacral ala and foramina and iliac wings without acute finding. Soft tissue calcifications are seen adjacent to the superior margin of the greater trochanters near tendon insertions. The right hip with AP and cross-table lateral view show somewhat limited range of motion. There are degenerative changes at the acetabular roof. I do not see significant spurring from the femoral head. There is no significant joint space narrowing. There is no fracture of the femoral head and neck, trochanters or subtrochanteric femur. IMPRESSION: 1. There is no visible or displaced fracture of the right hip or hemipelvis. Degenerative changes at the acetabular roof are noted. No acute fracture or finding in the pelvis. Signed by rEnesto Kennedy MD 09/08/2016 07:56 P
[2016-09-08 11:18] VITALS: BP 143/65
[2016-09-08] MEDS ORDERED: ONDANSETRON 4MG/2ML VIAL (J2405) IV ONE (11:45)
== END 2016-09-08 12:17 | disposition home or self-care (01) ==
LOC: EDBD 08:30 → M ED 11:58
DX: S70.01XA Contusion of right hip, initial encounter (principal); S70.211A Abrasion, right hip, initial encounter; W06.XXXA Fall from bed, initial encounter; Y92.092 Bedroom in other non-institutional residence as the place of occurrence of the external cause; Y93.89 Activity, other specified; Y99.9 Unspecified external cause status
CPT/HCPCS: 73502; 96374; 96375; 96376; 99284; J2405

== ENCOUNTER → 2017-04-15 | Outpatient (REF) | payer MEDICARE, MEDICAID ==
[2017-04-15 20:00] LABS: BASO % 0.3 % (0.0-1.0); EOS # 0.1 10^3/uL (0.0-0.50); EOS % 1.2 % (0.0-3.0); HEMATOCRIT 42.9 % (36.0-47.0); IMMATURE GRANULOCYTE % 0.2 % (0-0); LYMPH # 2.8 10^3/uL (1.5-4.5); LYMPH % 32.6 % (24.0-44.0); MEAN CORPUSCULAR HEMOGLOBIN 30.2 pg (27.0-33.0); MEAN CORPUSCULAR HGB CONC 32.6 g/dl (32.0-36.5); MEAN CORPUSCULAR VOLUME 92.5 fl (80.0-96.0); MONO # 0.5 10^3/uL (0.0-0.8); MONO % 5.6 % (0.0-5.0); NEUTROPHILS # 5.2 10^3/uL (1.8-7.7); NEUTROPHILS % 60.1 % (36.0-66.0); PLATELET COUNT, AUTOMATED 285 10^3/uL (150-450); RED BLOOD COUNT 4.64 10^6/uL (4.00-5.40); RED CELL DISTRIBUTION WIDTH 12.3 % (11.5-14.5); WHITE BLOOD COUNT 8.6 10^3/uL (4.0-10.0)
[2017-04-15 20:33] LABS: FREE T4 1.15 NG/DL (0.76-1.46); THYROID STIMULATING HORMONE 0.989 uIU/ML (0.358-3.740)
== END ==
LOC: M SFHCLERA 11:16
DX: F34.1 Dysthymic disorder (principal); Z79.899 Other long term (current) drug therapy
CPT/HCPCS: 84443

== ENCOUNTER 2017-08-15 06:38 | Day surgery (SDC) | payer MEDICARE ==
[2017-08-15] MEDS: PHENYLEPHRINE 2.5% OPHTH SOL 2ML OS (07:17)
[2017-08-15] MEDS: OFLOXACIN 0.3 % (OCUFLOX) OPTH SOL 5ML OS (07:17)
[2017-08-15] MEDS: PROPARACAINE 0.5% OPHTH SOL 15ML OS (07:17)
[2017-08-15] MEDS: TROPICAMIDE 1% OPHTH SOLN 2ML OS (07:17)
[2017-08-15] MEDS: POVIDONE-IODINE 5% OPHTH PREP SOL 30ML As Ordered (08:30)
[2017-08-15] MEDS: BALANCED SALT IRRIGATION SOLUTION 500ML BAG (FOR OR EYE MACHINE) As Ordered (08:31)
[2017-08-15] MEDS: DUOVISC (0.50ML VISCOAT/0.55ML PROVISC) OPHTH KIT As Ordered (08:31)
[2017-08-15] MEDS: CEFUROXIME 1MG/0.1ML INTRACAMERAL INJ As Ordered (08:32)
[2017-08-15] MEDS: LIDOCAINE 1% SDV 5 ML VIAL As Ordered (08:32)
[2017-08-15] MEDS ORDERED: fentaNYL 100 MCG/2 ML INJECTION (J3010) As Ordered (08:46)
[2017-08-15] MEDS ORDERED: MIDAZOLAM INJ 2 MG/2 ML VIAL (J2250) As Ordered (08:46)
== END 2017-08-15 09:27 | disposition home or self-care (01) ==
LOC: M SDC 06:38
DX: H25.12 Age-related nuclear cataract, left eye (principal); I10 Essential (primary) hypertension; E78.00 Pure hypercholesterolemia, unspecified; K21.9 Gastro-esophageal reflux disease without esophagitis; Z79.899 Other long term (current) drug therapy
CPT/HCPCS: 66984

== ENCOUNTER 2017-08-22 05:52 | Day surgery (SDC) | payer MEDICARE ==
[2017-08-22] MEDS: PROPARACAINE 0.5% OPHTH SOL 15ML OD (06:34)
[2017-08-22] MEDS: TROPICAMIDE 1% OPHTH SOLN 2ML OD (06:35)
[2017-08-22] MEDS: PHENYLEPHRINE 2.5% OPHTH SOL 2ML OD (06:35)
[2017-08-22] MEDS: OFLOXACIN 0.3 % (OCUFLOX) OPTH SOL 5ML OD (06:35)
[2017-08-22] MEDS ORDERED: fentaNYL 100 MCG/2 ML INJECTION (J3010) As Ordered (07:00)
[2017-08-22] MEDS ORDERED: MIDAZOLAM INJ 2 MG/2 ML VIAL (J2250) As Ordered (07:00)
[2017-08-22] MEDS: TETRACAINE 0.5% OPHTH SOLN 4ML As Ordered (07:27)
[2017-08-22] MEDS: POVIDONE-IODINE 5% OPHTH PREP SOL 30ML As Ordered (07:30)
[2017-08-22] MEDS: BALANCED SALT IRRIGATION SOLUTION 500ML BAG (FOR OR EYE MACHINE) As Ordered (07:31)
[2017-08-22] MEDS: CEFUROXIME 1MG/0.1ML INTRACAMERAL INJ As Ordered (07:38)
[2017-08-22] MEDS: LIDOCAINE 0.75%/EPINEPHRINE 0.025% IN BSS 1ML SYR INTRACAMERAL (OR ONLY) As Ordered ×2 (07:38)
[2017-08-22] MEDS: DUOVISC (0.50ML VISCOAT/0.55ML PROVISC) OPHTH KIT As Ordered (07:38)
[2017-08-22] MEDS: ACETYLCHOLINE OPHTH SOLN 1% 2ML (MIOCHOL-E) As Ordered (07:41)
[2017-08-22] MEDS: OFLOXACIN 0.3 % (OCUFLOX) OPTH SOL 5ML As Ordered (07:41)
== END 2017-08-22 08:22 | disposition home or self-care (01) ==
LOC: M SDC 05:52
DX: H25.11 Age-related nuclear cataract, right eye (principal); I10 Essential (primary) hypertension; E78.00 Pure hypercholesterolemia, unspecified; K21.9 Gastro-esophageal reflux disease without esophagitis; Z79.899 Other long term (current) drug therapy
CPT/HCPCS: 66984

== ENCOUNTER → 2017-10-09 | Outpatient (CLI) | payer MEDICARE | LOC: M RAD 08:03 | DX: Z12.31 Encounter for screening mammogram for malignant neoplasm of breast (principal) | CPT/HCPCS: 77067 ==

== ENCOUNTER → 2018-01-05 | Outpatient (REF) | payer MEDICARE, MEDICAID | LOC: M SFHCLERA 09:43 | DX: R53.81 Other malaise (principal) ==

== ENCOUNTER → 2018-04-15 | Outpatient (CLI) | payer MEDICARE, MEDICAID ==
[~2018-04-15] MED LIST changes: +CITA-230 PO; -GABA-282 PO; +GABA-843 PO; +METO1TAB87 PO
--- NOTE | 2018-04-15 13:42 | REP ---
Clinical: Cough . Comparison: 10/07/2015 . Technique: PA and lateral. Findings: The mediastinum and cardiac silhouette are normal/stable. Calcified left hilar lymph nodes and small stable calcified granuloma in the left mid lung zone suggest prior granulomas disease. The lung louis are clear and without acute consolidation, effusion, or pneumothorax. The skeletal structures are intact and normal. Impression: 1. Prior granulomas disease. 2. No acute cardiopulmonary process appreciated. Electronically Signed by Aedel Rob MD 04/15/2018 01:34 P
== END ==
LOC: M LRY 13:25
PROVIDERS: ATTEND Family Medicine
DX: J98.4 Other disorders of lung (principal); R05 Cough
CPT/HCPCS: 71046; 94640; G0463

== ENCOUNTER → 2018-05-22 | Outpatient (CLI) | payer MEDICARE, MEDICAID ==
--- NOTE | 2018-05-22 13:43 | REP ---
Right knee series: Five views. History: Sprain in the medial collateral ligament of the right knee. Findings: There is mild osteoarthritic spurring at the superior pole and lateral aspect of the patella. There is also nonarticular spurring at the quadriceps tendon insertion site on the superior pole of the patella. Bones, joints and soft tissues are otherwise radiographically unremarkable. Impression: Patellar spurring. Otherwise negative right knee radiographs. Electronically Signed by Kayden Hubbard MD 05/22/2018 01:47 P
== END ==
LOC: M LRY 12:28
PROVIDERS: ATTEND Family Medicine
DX: M25.761 Osteophyte, right knee (principal); S83.411A Sprain of medial collateral ligament of right knee, initial encounter; W00.9XXA Unspecified fall due to ice and snow, initial encounter; Y92.9 Unspecified place or not applicable
CPT/HCPCS: 73564; G0463

== ENCOUNTER → 2018-06-25 | Outpatient (CLI) | payer MEDICAID, MEDICARE ==
[~2018-06-25] MED LIST changes: -/PRAV20TA PO; +ASPI-1 PO; -ASPI325T PO; -CITA-230 PO; +CITA20TA7 PO; +PRAV1TAB39 PO
--- NOTE | 2018-06-25 11:20 | REP ---
MAXILLOFACIAL CT STUDY WITHOUT CONTRAST: HISTORY: Allergic rhinitis. TECHNIQUE: Helical scanning is acquired. 3 mm axial images are reformatted at bone and soft-tissue window settings. Coronal MPR images are generated and reviewed as well. CT FINDINGS: The maxillary sinuses are clear. There is no evidence of sphenoid, ethmoid, frontal, or mastoid sinus opacification. The bony nasal septum is in the midline. Nasal turbinate soft tissues are unremarkable and symmetric. No evidence of nasal polyp. The ostiomeatal complexes are widely patent bilaterally. There were no intraorbital abnormalities appreciated. Visualized intracranial and deep facial soft tissues are unremarkable. IMPRESSION: Normal maxillofacial CT study. Electronically Signed by Kayden Hubbard MD 06/25/2018 05:27 P
== END ==
LOC: M RAD 08:13
PROVIDERS: ATTEND Otolaryngology
DX: J30.9 Allergic rhinitis, unspecified (principal)

== ENCOUNTER → 2018-08-14 | Outpatient (CLI) | payer MEDICARE ==
--- NOTE | 2018-08-14 15:04 | REP ---
RIGHT FOOT SERIES: Four views. HISTORY: Injury. FINDINGS: There is an obliquely oriented fracture through the distal diaphysis of the 5th metatarsal with overlying soft tissue swelling. There is also evidence of a chip fracture involving the proximal end of the 5th metatarsal. No other acute fracture is seen. There is osteoarthritic spurring at the 1st MTP joint. Exam is otherwise unremarkable. IMPRESSION: Obliquely oriented fracture through the distal 5th metatarsal diaphysis. Chip fracture at the proximal tip of the 5th metatarsal. Electronically Signed by Kayden Hubbard MD 08/14/2018 03:52 P
[2018-08-14 17:13] LABS: BLOOD UREA NITROGEN 17 MG/DL (7-18); CALCIUM LEVEL 9.6 MG/DL (8.8-10.2); CARBON DIOXIDE LEVEL 29 MEQ/L (21-32); CHLORIDE LEVEL 104 MEQ/L (98-107); CREATININE FOR GFR 0.53 MG/DL (0.55-1.30); GLOMERULAR FILTRATION RATE > 60.0 (>39); GLUCOSE, FASTING 92 MG/DL (70-100); POTASSIUM SERUM 4.4 MEQ/L (3.5-5.1); SODIUM LEVEL 139 MEQ/L (136-145)
== END ==
LOC: M LRY 11:33
PROVIDERS: ATTEND Family Medicine
DX: S92.354A Nondisplaced fracture of fifth metatarsal bone, right foot, initial encounter for closed fracture (principal); I10 Essential (primary) hypertension; W08.XXXA Fall from other furniture, initial encounter; Y92.009 Unspecified place in unspecified non-institutional (private) residence as the place of occurrence of the external cause
CPT/HCPCS: 36415; 73630; 80048; G0463

== ENCOUNTER → 2018-11-25 | Outpatient (REF) | payer MEDICARE ==
[2018-11-25 17:33] LABS: BASO % 0.5 % (0.0-1.0); EOS # 0.3 10^3/uL (0.0-0.5); EOS % 3.1 % (0.0-3.0); HEMATOCRIT 40.1 % (36.0-47.0); HEMOGLOBIN 13.5 g/dl (12.0-15.5); LYMPH # 3.3 10^3/uL (1.5-5.0); LYMPH % 40.4 % (24.0-44.0); MEAN CORPUSCULAR HEMOGLOBIN 30.9 pg (27.0-33.0); MEAN CORPUSCULAR HGB CONC 33.7 g/dl (32.0-36.5); MEAN CORPUSCULAR VOLUME 91.8 fl (80.0-96.0); MONO # 0.7 10^3/uL (0.0-0.8); MONO % 8.4 % (0.0-5.0); NEUTROPHILS # 3.8 10^3/uL (1.5-8.5); NEUTROPHILS % 47.4 % (36.0-66.0); PLATELET COUNT, AUTOMATED 296 10^3/uL (150-450); RED BLOOD COUNT 4.37 10^6/uL (4.00-5.40); WHITE BLOOD COUNT 8.1 10^3/uL (4.0-10.0)
[2018-11-25 17:57] LABS: ALBUMIN 4.4 GM/DL (3.2-5.2); ALT/SGPT 41 U/L (12-78); BILIRUBIN,TOTAL 0.5 MG/DL (0.2-1.0); BLOOD UREA NITROGEN 15 MG/DL (7-18); CARBON DIOXIDE LEVEL 27 MEQ/L (21-32); CHLORIDE LEVEL 103 MEQ/L (98-107); CREATININE FOR GFR 0.67 MG/DL (0.55-1.30); FREE T4 0.98 NG/DL (0.76-1.46); GLOMERULAR FILTRATION RATE > 60.0 (>39); GLUCOSE, FASTING 94 MG/DL (70-100); POTASSIUM SERUM 4.5 MEQ/L (3.5-5.1); SODIUM LEVEL 139 MEQ/L (136-145); TOTAL PROTEIN 7.7 GM/DL (6.4-8.2)
== END ==
LOC: M SFHCLERA 11:45
PROVIDERS: ATTEND Family Medicine
DX: R53.83 Other fatigue (principal)
CPT/HCPCS: 80053; 84439; 84443; 85025; G0463

== ENCOUNTER → 2018-12-03 | Outpatient (CLI) | payer MEDICARE ==
[~2018-12-03] MED LIST changes: -OMEP40CA2 PO; +OMEP40CA97 PO; +ZYRTTAB8 PO
--- NOTE | 2018-12-03 09:47 | REP ---
BILATERAL SCREENING DIGITAL MAMMOGRAM WITH 3D TOMOSYNTHESIS: There are no palpable abnormalities or other breast complaints. The the patient states she had a clinical breast examination December 05, 2018. The Tyrer-Cuzick Score is: 3.2% . Comparison is 06/22/2013. There are scattered areas of fibroglandular density. There is no dominant mass, micro calcific cluster or architectural distortion that would indicate malignancy. The cutaneous marker identifies a skin lesion superiorly in the left breast, unchanged. There are no additional findings on 3D tomosynthesiss. There is no change from the prior study. Impression: BIRADS/ACR category 2 mammogram. Benign findings. Recommendation: Routine annual screening mammography. This mammogram was interpreted with the aid of a FDA approved computer-aided detection system. A. Negative mammogram reports should not delay biopsy if a dominant or clinically suspicious mass is present. B. Not all breast cancers are identified by mammography or tomosynthesis. C. Adenosis and dense breasts may obscure an underlying neoplasm. Patient letter M1. Electronically Signed by Brennan Earl MD 12/03/2018 09:38 A
== END ==
LOC: M RAD 08:18
PROVIDERS: ATTEND Family Medicine
DX: Z12.31 Encounter for screening mammogram for malignant neoplasm of breast (principal); Z79.899 Other long term (current) drug therapy

== ENCOUNTER → 2018-12-03 | Outpatient (REF) | payer MEDICARE ==
[~2018-12-03] MED LIST changes: +OMEP40CA2 PO; -OMEP40CA97 PO; -ZYRTTAB8 PO
== END ==
LOC: M SFHCLERA 10:37
PROVIDERS: ATTEND Family Medicine
DX: E55.9 Vitamin D deficiency, unspecified (principal)

== ENCOUNTER 2018-12-14 07:23 | Emergency (ER) | payer MEDICARE ==
[~2018-12-14] VITALS: Ht 167.6 cm; Wt 83.5 kg
[2018-12-14] MEDS ORDERED: ZYRTTAB8 PO (07:31)
[2018-12-14 08:36] LABS: BASO % 0.5 % (0.0-1.0); EOS # 0.2 10^3/uL (0.0-0.5); EOS % 2.5 % (0.0-3.0); HEMATOCRIT 38.5 % (36.0-47.0); HEMOGLOBIN 13.5 g/dl (12.0-15.5); LYMPH # 2.2 10^3/uL (1.5-5.0); LYMPH % 26.3 % (24.0-44.0); MEAN CORPUSCULAR HEMOGLOBIN 32.5 pg (27.0-33.0); MEAN CORPUSCULAR HGB CONC 35.1 g/dl (32.0-36.5); MEAN CORPUSCULAR VOLUME 92.5 fl (80.0-96.0); MONO # 0.6 10^3/uL (0.0-0.8); MONO % 7.2 % (0.0-5.0); NEUTROPHILS # 5.4 10^3/uL (1.5-8.5); PLATELET COUNT, AUTOMATED 249 10^3/uL (150-450); RED BLOOD COUNT 4.16 10^6/uL (4.00-5.40); WHITE BLOOD COUNT 8.5 10^3/uL (4.0-10.0)
[2018-12-14 08:57] LABS: BLOOD UREA NITROGEN 15 MG/DL (7-18); CALCIUM LEVEL 8.9 MG/DL (8.8-10.2); CARBON DIOXIDE LEVEL 28 MEQ/L (21-32); CHLORIDE LEVEL 105 MEQ/L (98-107); CREATININE FOR GFR 0.64 MG/DL (0.55-1.30); GLOMERULAR FILTRATION RATE > 60.0 (>39); GLUCOSE, FASTING 98 MG/DL (70-100); POTASSIUM SERUM 4.1 MEQ/L (3.5-5.1); SODIUM LEVEL 139 MEQ/L (136-145)
[2018-12-14] MEDS ORDERED: LIDOCAINE 2% W/EPIN INJ 20ML **PRES FREE INFIL ONE (09:00)
[2018-12-14 10:09] VITALS: BP 170/90
== END 2018-12-14 10:09 | disposition home or self-care (01) ==
LOC: M ED 07:23
DX: L02.411 Cutaneous abscess of right axilla (principal); I10 Essential (primary) hypertension; E55.9 Vitamin D deficiency, unspecified; E78.5 Hyperlipidemia, unspecified; K21.9 Gastro-esophageal reflux disease without esophagitis; Z79.899 Other long term (current) drug therapy

== ENCOUNTER → 2019-04-01 | Outpatient (REF) | payer MEDICARE ==
[~2019-04-01] MED LIST changes: -OMEP40CA2 PO; +OMEP40CA97 PO; +ZYRTTAB8 PO
[2019-04-01 17:05] LABS: APPEARANCE, URINE CLEAR (CLEAR); BACTERIA, URINE AUTO NEGATIVE (NEGATIVE); BILIRUBIN, URINE AUTO NEGATIVE (NEGATIVE); BLOOD, URINE BLOOD 2+ (NEGATIVE); COLOR, URINE YELLOW (YELLOW); GLUCOSE, URINE (UA) AUTO NEGATIVE (NEGATIVE); KETONE, URINE AUTO NEGATIVE (NEGATIVE); LEUKOCYTE ESTERASE, URINE AUTO NEGATIVE (NEGATIVE); MUCUS, URINE SMALL (NEGATIVE); NITRITE, URINE AUTO NEGATIVE (NEGATIVE); PROTEIN, URINE AUTO NEGATIVE (NEGATIVE); RBC, URINE AUTO 5 /HPF (0-3); SPECIFIC GRAVITY URINE AUTO 1.016 (1.002-1.035); SQUAMOUS EPITHELIAL CELL UR AU 1 /HPF (0-6); UROBILINOGEN, URINE AUTO 0.2 mg/dL (0.0-2.0); WBC, URINE AUTO 1 /HPF (0-3)
[2019-04-01 17:06] LABS: MYOGLOBIN SCREEN, URINE POSITIVE (NEGATIVE)
[2019-04-01 17:24] LABS: ALBUMIN 3.8 GM/DL (3.2-5.2); ALT/SGPT 85 U/L (12-78); BILIRUBIN,TOTAL 0.3 MG/DL (0.2-1.0); BLOOD UREA NITROGEN 13 MG/DL (7-18); C REACTIVE PROTEIN QUANTITATIV 2.58 MG/DL (0.00-0.30); CALCIUM LEVEL 8.7 MG/DL (8.8-10.2); CARBON DIOXIDE LEVEL 26 MEQ/L (21-32); CHLORIDE LEVEL 106 MEQ/L (98-107); CPK CREATINE PHOSPHOKINASE 96 U/L (26-192); CREATININE FOR GFR 0.54 MG/DL (0.55-1.30); GLOMERULAR FILTRATION RATE > 60.0 (>39); GLUCOSE, FASTING 129 MG/DL (70-100); POTASSIUM SERUM 4.2 MEQ/L (3.5-5.1); SODIUM LEVEL 139 MEQ/L (136-145); THYROID STIMULATING HORMONE 0.954 uIU/ML (0.358-3.740); TOTAL PROTEIN 7.2 GM/DL (6.4-8.2)
[2019-04-01 17:33] LABS: BASO # 0.1 10^3/uL (0.0-0.2); BASO % 0.5 % (0.0-1.0); EOS # 0.4 10^3/uL (0.0-0.5); EOS % 3.3 % (0.0-3.0); HEMATOCRIT 39.7 % (36.0-47.0); HEMOGLOBIN 12.9 g/dl (12.0-15.5); LYMPH # 2.1 10^3/uL (1.5-5.0); LYMPH % 19.9 % (24.0-44.0); MEAN CORPUSCULAR HEMOGLOBIN 30.8 pg (27.0-33.0); MEAN CORPUSCULAR HGB CONC 32.5 g/dl (32.0-36.5); MEAN CORPUSCULAR VOLUME 94.7 fl (80.0-96.0); MONO # 0.7 10^3/uL (0.0-0.8); MONO % 6.7 % (0.0-5.0); NEUTROPHILS # 7.4 10^3/uL (1.5-8.5); NEUTROPHILS % 69.2 % (36.0-66.0); PLATELET COUNT, AUTOMATED 325 10^3/uL (150-450); RED BLOOD COUNT 4.19 10^6/uL (4.00-5.40); WHITE BLOOD COUNT 10.6 10^3/uL (4.0-10.0)
[2019-04-01 18:07] LABS: ERYTHROCYTE SEDIMENTATION RATE 56 mm/hr (0-30)
== END ==
LOC: M SFHCLERA 10:49
PROVIDERS: ATTEND Family Medicine
DX: M79.10 Myalgia, unspecified site (principal); I10 Essential (primary) hypertension
CPT/HCPCS: 80053; 81001; 81002; 82550; 84443; 85025; 85652; 86140; 87804; G0463

== ENCOUNTER → 2019-04-14 | Outpatient (REF) | payer MEDICARE ==
[2019-04-14 12:13] LABS: BASO % 0.4 % (0.0-1.0); EOS # 0.3 10^3/uL (0.0-0.5); EOS % 3.5 % (0.0-3.0); HEMATOCRIT 39.7 % (36.0-47.0); HEMOGLOBIN 13.1 g/dl (12.0-15.5); LYMPH # 2.6 10^3/uL (1.5-5.0); LYMPH % 26.3 % (24.0-44.0); MEAN CORPUSCULAR VOLUME 93.9 fl (80.0-96.0); MONO # 0.7 10^3/uL (0.0-0.8); MONO % 6.6 % (0.0-5.0); NEUTROPHILS # 6.2 10^3/uL (1.5-8.5); NEUTROPHILS % 62.9 % (36.0-66.0); PLATELET COUNT, AUTOMATED 346 10^3/uL (150-450); RED BLOOD COUNT 4.23 10^6/uL (4.00-5.40); WHITE BLOOD COUNT 9.8 10^3/uL (4.0-10.0)
[2019-04-14 12:41] LABS: ALBUMIN 4.1 GM/DL (3.2-5.2); ALT/SGPT 38 U/L (12-78); BILIRUBIN,TOTAL 0.4 MG/DL (0.2-1.0); BLOOD UREA NITROGEN 16 MG/DL (7-18); C REACTIVE PROTEIN QUANTITATIV 3.21 MG/DL (0.00-0.30); CALCIUM LEVEL 8.9 MG/DL (8.8-10.2); CARBON DIOXIDE LEVEL 30 MEQ/L (21-32); CHLORIDE LEVEL 105 MEQ/L (98-107); CPK CREATINE PHOSPHOKINASE 116 U/L (26-192); CREATININE FOR GFR 0.53 MG/DL (0.55-1.30); GLOMERULAR FILTRATION RATE > 60.0 (>39); GLUCOSE, FASTING 88 MG/DL (70-100); POTASSIUM SERUM 4.1 MEQ/L (3.5-5.1); SODIUM LEVEL 139 MEQ/L (136-145); TOTAL PROTEIN 7.6 GM/DL (6.4-8.2)
[2019-04-14 12:59] LABS: ERYTHROCYTE SEDIMENTATION RATE 56 mm/hr (0-30)
== END ==
LOC: M SFHCLERA 08:40
PROVIDERS: ATTEND Family Medicine
DX: M25.511 Pain in right shoulder (principal)
CPT/HCPCS: 80053; 82550; 85025; 85652; 86140; G0463

== ENCOUNTER → 2019-04-23 | Outpatient (REF) | payer MEDICARE ==
[2019-04-23 12:05] LABS: BASO # 0.1 10^3/uL (0.0-0.2); BASO % 0.5 % (0.0-1.0); EOS # 0.3 10^3/uL (0.0-0.5); HEMATOCRIT 41.1 % (36.0-47.0); HEMOGLOBIN 13.8 g/dl (12.0-15.5); LYMPH # 2.5 10^3/uL (1.5-5.0); LYMPH % 21.8 % (24.0-44.0); MEAN CORPUSCULAR HEMOGLOBIN 30.7 pg (27.0-33.0); MEAN CORPUSCULAR HGB CONC 33.6 g/dl (32.0-36.5); MEAN CORPUSCULAR VOLUME 91.3 fl (80.0-96.0); MONO # 0.8 10^3/uL (0.0-0.8); MONO % 6.7 % (0.0-5.0); NEUTROPHILS # 7.8 10^3/uL (1.5-8.5); NEUTROPHILS % 67.8 % (36.0-66.0); PLATELET COUNT, AUTOMATED 373 10^3/uL (150-450); WHITE BLOOD COUNT 11.5 10^3/uL (4.0-10.0)
[2019-04-23 12:42] LABS: ERYTHROCYTE SEDIMENTATION RATE 53 mm/hr (0-30)
[2019-04-23 12:48] LABS: ALBUMIN 4.1 GM/DL (3.2-5.2); ALT/SGPT 36 U/L (12-78); BILIRUBIN,TOTAL 0.3 MG/DL (0.2-1.0); BLOOD UREA NITROGEN 17 MG/DL (7-18); C REACTIVE PROTEIN QUANTITATIV 1.86 MG/DL (0.00-0.30); CALCIUM LEVEL 9.4 MG/DL (8.8-10.2); CARBON DIOXIDE LEVEL 28 MEQ/L (21-32); CHLORIDE LEVEL 102 MEQ/L (98-107); CPK CREATINE PHOSPHOKINASE 91 U/L (26-192); CREATININE FOR GFR 0.58 MG/DL (0.55-1.30); GLOMERULAR FILTRATION RATE > 60.0 (>39); GLUCOSE, FASTING 121 MG/DL (70-100); POTASSIUM SERUM 4.3 MEQ/L (3.5-5.1); SODIUM LEVEL 139 MEQ/L (136-145); TOTAL PROTEIN 7.6 GM/DL (6.4-8.2)
== END ==
LOC: M SFHCLERA 09:23
PROVIDERS: ATTEND Family Medicine
DX: M25.511 Pain in right shoulder (principal); M25.512 Pain in left shoulder
CPT/HCPCS: 80053; 82550; 85025; 85652; 86140; G0463

== ENCOUNTER → 2019-07-27 | Outpatient (CLI) | payer MEDICARE ==
[~2019-07-27] MED LIST changes: +GABA-1171 PO
== END ==
LOC: M LABSMTC 09:42
PROVIDERS: ATTEND Anesthesiology
DX: Z01.818 Encounter for other preprocedural examination (principal); Z11.59 Encounter for screening for other viral diseases
CPT/HCPCS: C9803; U0002

== ENCOUNTER 2019-07-28 08:17 | Outpatient (CLI) | payer MEDICARE ==
[~2019-07-28 08:17] MED LIST changes: -GABA-1171 PO
[2019-07-28] MEDS ORDERED: GABA-1171 PO (08:37)
--- NOTE | 2019-07-28 10:51 | REP ---
MRI CERVICAL SPINE WITHOUT CONTRAST: HISTORY: Cervical radiculopathy. Neck pain radiating bilaterally. COMPARISON STUDY: October 25, 2015. TECHNIQUE: Sagittal and axial T1- and T2-weighted scans are acquired in the usual fashion with and without fat saturation. Sequences include spin echo, turbo spin echo, and STIR imaging sequences. MRI FINDINGS: Vertebral body heights are preserved. Alignment is normal. Incidental note is made of developmental fusion of the C3-4 facet joints bilaterally. This is felt to be unchanged. Cervical vertebral body heights are preserved. No bony destructive lesion is seen. Alignment is normal. Slight straightening is seen in the mid and lower cervical spine. Cervical cord is normal in coarse, caliber and signal intensity on T1- and T2-weighted scans. Craniocervical junction is unremarkable. There is a small perineural cyst on the right at the T1-T2 level in the upper thoracic spine. This is of no significance. Axial and sagittal images at C2-3 show no abnormality. The C3-4 disc is slightly narrowed. There is no evidence of disc protrusion or central canal stenosis. No neural foraminal narrowing is seen. At C4-5, there is a small central focal disc protrusion which subtly indents the ventral margin of the cord. This was not apparent previously. No neural foraminal narrowing is appreciated. At C5-C6, there is disc space narrowing and posterior osteophytic ridging associated with left posterior disc protrusion. This flattens the left ventral margin of the thecal sac and there is left-sided uncovertebral spurring producing foraminal narrowing. This is slightly more pronounced than on the 2016 prior study. There is minimal uncovertebral spurring on the right at C5-6 as well. Canal size is borderline at C5-6. At C6-7, there is disc space narrowing and diffuse disc bulging. Mild posterior osteophytic ridging is seen. There is minimal right-sided uncovertebral spurring. These findings are unchanged. At C7-T1, there is no evidence of disc protrusion or central canal stenosis. IMPRESSION: Mild degenerative spondylosis changes. Interval appearance of a small central focal disc protrusion at C4-5. Progressive uncovertebral spurring and discogenic spurring left posterior disc bulge at C5-6. Borderline canal size at C5-6. Developmental fusion of the facets at C3-4 bilaterally. Electronically Signed by Kayden Hubbard MD 07/28/2019 11:26 A
[2019-07-28 11:30] VITALS: BP 170/72
== END 2019-07-28 11:45 | disposition home or self-care (01) ==
LOC: M SDC 08:17
PROVIDERS: ATTEND Orthopaedic Surgery
DX: M54.12 Radiculopathy, cervical region (principal); M47.9 Spondylosis, unspecified

== ENCOUNTER → 2019-08-24 | Outpatient (CLI) | payer MEDICARE ==
[~2019-08-24] MED LIST changes: +GABA-1171 PO
== END ==
LOC: M LABSMTC 09:56
PROVIDERS: ATTEND Physician Assistant Surgical
DX: Z03.818 Encounter for observation for suspected exposure to other biological agents ruled out (principal); Z11.59 Encounter for screening for other viral diseases

== ENCOUNTER → 2019-09-17 | Outpatient (REF) | payer MEDICARE ==
[2019-09-17 11:44] LABS: BLOOD UREA NITROGEN 15 MG/DL (7-18); CARBON DIOXIDE LEVEL 30 MEQ/L (21-32); CHLORIDE LEVEL 104 MEQ/L (98-107); GLOMERULAR FILTRATION RATE > 60.0 (>39); GLUCOSE, FASTING 99 MG/DL (70-100); POTASSIUM SERUM 4.4 MEQ/L (3.5-5.1); SODIUM LEVEL 138 MEQ/L (136-145)
== END ==
LOC: M SFHCLERA 09:07
PROVIDERS: ATTEND Family Medicine
DX: I10 Essential (primary) hypertension (principal)
CPT/HCPCS: 36415; 80048; G0463

== ENCOUNTER → 2019-11-03 | Outpatient (POV) | payer MEDICARE ==
[~2019-11-03] MED LIST changes: +CHLO125TA PO; +DOXY-350 PO; +ISOVUE-M 300 61% 15ML VIAL ONE; +LIDOCAINE 1% SDV 30ML VIAL ONE; +diazePAM 5 MG TAB ONE; +methylPREDNISolone SUSP 40MG/ML 1ML VIAL (DEPO MEDROL) ONE
--- NOTE | 2019-12-14 09:29 | REP ---
CERVICAL SPINE LIMITED STUDY: TWO-VIEWS HISTORY: Injection procedure for pain. 20 seconds of fluoroscopy time is reported. A sequence of 2 last image hold fluoroscopically obtained spot radiographs of the cervicothoracic junction document needle position and contrast injection associated with cervical injection procedure. MTDD
== END ==
LOC: M PAIN 09:00
PROVIDERS: ATTEND Anesthesiology
DX: M50.10 Cervical disc disorder with radiculopathy, unspecified cervical region (principal)

== ENCOUNTER 2019-12-03 12:58 | Emergency (ER) | payer MEDICARE ==
[~2019-12-03] VITALS: Ht 167.6 cm; Wt 85.0 kg
[~2019-12-03 12:58] MED LIST changes: -CHLO125TA PO; -DOXY-350 PO; -ISOVUE-M 300 61% 15ML VIAL ONE; -LIDOCAINE 1% SDV 30ML VIAL ONE; -diazePAM 5 MG TAB ONE; -methylPREDNISolone SUSP 40MG/ML 1ML VIAL (DEPO MEDROL) ONE
[2019-12-03] MEDS ORDERED: CHLO125TA PO (13:16)
[2019-12-03] MEDS ORDERED: DOXY-350 PO (13:16)
--- NOTE | 2019-12-03 13:53 | REPVR ---
PROCEDURE INFORMATION: Exam: XR Right Knee Exam date and time: 12/03/2019 1:17 PM Age: 74 years old Clinical indication: Pain; Knee; Right; Additional info: Pain swelling, unable to walk TECHNIQUE: Imaging protocol: XR Right knee. Views: 4 or more views. COMPARISON: CR KNEE COMPLETE 05/22/2018 12:35 PM FINDINGS: Bones/joints: No acute bony injury or malalignment. Mild degenerative change. Soft tissues: Calcification at the quadriceps tendon attachment site. IMPRESSION: Mild degenerative change. Electronically signed by: Charles Gonzalez On 12/03/2019 13:52:55 PM
[2019-12-03 14:23] VITALS: BP 144/65
== END 2019-12-03 14:55 | disposition home or self-care (01) ==
LOC: M ED 12:58 → EDBD 12:58 → M ED 14:55
DX: M25.561 Pain in right knee (principal); I10 Essential (primary) hypertension; E78.5 Hyperlipidemia, unspecified; F41.9 Anxiety disorder, unspecified; K21.9 Gastro-esophageal reflux disease without esophagitis; M48.061 Spinal stenosis, lumbar region without neurogenic claudication; Z79.899 Other long term (current) drug therapy

== ENCOUNTER → 2020-01-01 | Outpatient (CLI) | payer MEDICARE ==
[~2020-01-01] MED LIST changes: +CHLO125TA PO; +DOXY-350 PO
== END ==
LOC: M LABSMTC 09:35
PROVIDERS: ATTEND Orthopaedic Surgery
DX: Z01.812 Encounter for preprocedural laboratory examination (principal); Z20.828 Contact with and (suspected) exposure to other viral communicable diseases

== ENCOUNTER → 2020-02-04 | Outpatient (REF) | payer MEDICARE ==
[2020-02-04 16:13] LABS: APPEARANCE, URINE CLEAR (CLEAR); BACTERIA, URINE AUTO NEGATIVE (NEGATIVE); BILIRUBIN, URINE AUTO NEGATIVE (NEGATIVE); BLOOD, URINE BLOOD NEGATIVE (NEGATIVE); COLOR, URINE YELLOW (YELLOW); GLUCOSE, URINE (UA) AUTO NEGATIVE (NEGATIVE); KETONE, URINE AUTO NEGATIVE (NEGATIVE); LEUKOCYTE ESTERASE, URINE AUTO NEGATIVE (NEGATIVE); NITRITE, URINE AUTO NEGATIVE (NEGATIVE); PROTEIN, URINE AUTO NEGATIVE (NEGATIVE); RBC, URINE AUTO 1 /HPF (0-3); SPECIFIC GRAVITY URINE AUTO 1.013 (1.002-1.035); SQUAMOUS EPITHELIAL CELL UR AU 1 /HPF (0-6); UROBILINOGEN, URINE AUTO 0.2 mg/dL (0.0-2.0); WBC, URINE AUTO 1 /HPF (0-3)
== END ==
LOC: M SFHCLERA 15:50
PROVIDERS: ATTEND Family Medicine
DX: R30.0 Dysuria (principal)
CPT/HCPCS: 81001; 81002; 87086; G0463

== ENCOUNTER → 2020-03-28 | Outpatient (REF) | payer MEDICARE ==
[~2020-03-28] MED LIST changes: +GABA-282 PO; -GABA-843 PO
== END ==
LOC: M SFHCLERA 10:58
PROVIDERS: ATTEND Nurse Practitioner Family
DX: R68.89 Other general symptoms and signs (principal); Z11.52 Encounter for screening for COVID-19
CPT/HCPCS: 87804; G0463; U0003

== ENCOUNTER → 2020-04-04 | Outpatient (REF) | payer MEDICARE | LOC: M SFHCLERA 10:45 | PROVIDERS: ATTEND Nurse Practitioner Family | DX: R30.0 Dysuria (principal) | CPT/HCPCS: 81002; 87088; 87186; G0463 ==

== ENCOUNTER → 2020-04-14 | Outpatient (CLI) | payer MEDICARE ==
[2020-04-14 11:42] LABS: APPEARANCE, URINE HAZY (CLEAR); BACTERIA, URINE AUTO NEGATIVE (NEGATIVE); BILIRUBIN, URINE AUTO NEGATIVE (NEGATIVE); BLOOD, URINE BLOOD NEGATIVE (NEGATIVE); COLOR, URINE YELLOW (YELLOW); GLUCOSE, URINE (UA) AUTO NEGATIVE (NEGATIVE); KETONE, URINE AUTO NEGATIVE (NEGATIVE); LEUKOCYTE ESTERASE, URINE AUTO TRACE (NEGATIVE); MUCUS, URINE SMALL (NEGATIVE); NITRITE, URINE AUTO NEGATIVE (NEGATIVE); PROTEIN, URINE AUTO NEGATIVE (NEGATIVE); RBC, URINE AUTO 1 /HPF (0-3); SPECIFIC GRAVITY URINE AUTO 1.015 (1.002-1.035); SQUAMOUS EPITHELIAL CELL UR AU 3 /HPF (0-6); UROBILINOGEN, URINE AUTO 0.2 mg/dL (0.0-2.0); WBC, URINE AUTO 1 /HPF (0-3)
[2020-04-14 11:44] LABS: BASO % 0.5 % (0.0-1.0); EOS # 0.2 10^3/uL (0.0-0.5); EOS % 2.9 % (0.0-3.0); HEMATOCRIT 40.2 % (36.0-47.0); HEMOGLOBIN 13.5 g/dl (12.0-15.5); LYMPH # 3.4 10^3/uL (1.5-5.0); LYMPH % 41.6 % (24.0-44.0); MEAN CORPUSCULAR HEMOGLOBIN 31.7 pg (27.0-33.0); MEAN CORPUSCULAR HGB CONC 33.6 g/dl (32.0-36.5); MEAN CORPUSCULAR VOLUME 94.4 fl (80.0-96.0); MONO # 0.6 10^3/uL (0.0-0.8); NEUTROPHILS # 3.9 10^3/uL (1.5-8.5); NEUTROPHILS % 47.9 % (36.0-66.0); PLATELET COUNT, AUTOMATED 304 10^3/uL (150-450); RED BLOOD COUNT 4.26 10^6/uL (4.00-5.40); WHITE BLOOD COUNT 8.2 10^3/uL (4.0-10.0)
[2020-04-14 12:50] LABS: ALBUMIN 4.1 GM/DL (3.2-5.2); ALT/SGPT 51 U/L (12-78); BILIRUBIN,TOTAL 0.5 MG/DL (0.2-1.0); BLOOD UREA NITROGEN 18 MG/DL (7-18); CALCIUM LEVEL 9.2 MG/DL (8.8-10.2); CARBON DIOXIDE LEVEL 29 MEQ/L (21-32); CHLORIDE LEVEL 102 MEQ/L (98-107); CREATININE FOR GFR 0.71 MG/DL (0.55-1.30); FREE T4 0.92 NG/DL (0.76-1.46); GLOMERULAR FILTRATION RATE > 60.0 (>39); GLUCOSE, FASTING 142 MG/DL (70-100); POTASSIUM SERUM 3.6 MEQ/L (3.5-5.1); SODIUM LEVEL 138 MEQ/L (136-145); TOTAL PROTEIN 7.3 GM/DL (6.4-8.2)
== END ==
LOC: M WUC 10:21
PROVIDERS: ATTEND Family Medicine
DX: R53.83 Other fatigue (principal)

== ENCOUNTER → 2020-05-25 | Outpatient (CLI) | payer MEDICARE ==
[2020-05-25 12:30] LABS: CHOLESTEROL RISK RATIO 5.627 (<5)
[2020-05-25 13:16] LABS: HEMOGLOBIN A1c 5.5 %
== END ==
LOC: M WUC 08:54
PROVIDERS: ATTEND Family Medicine
DX: I10 Essential (primary) hypertension (principal); Z79.899 Other long term (current) drug therapy

== ENCOUNTER → 2020-09-08 | Outpatient (CLI) | payer MEDICARE ==
[~2020-09-08] MED LIST changes: +OMEP40CA4 PO; -OMEP40CA97 PO
--- NOTE | 2020-09-08 11:52 | REPMRS ---
Patient History The patient states she had a clinical breast exam in . No known family history of cancer. Took hormonal contraceptives for 10 years. Took unspecified hormones for 10 years. Patient states no breast complaints today. Patient has signed MRS History Sheet. Digital Woman Screen Mammo: September 08, 2020 - Exam #: [id number] Bilateral CC and MLO view(s) were taken. Technologist: Shalonda See, Technologist Prior study comparison: December 03, 2018, bilateral digital mammo screening bilat, performed at [facility]. October 09, 2017, bilateral digital mammo screening bilat, performed at [facility]. November 03, 2014, digital bilateral screening mammo, performed at [facility]. FINDINGS: There are scattered fibroglandular densities. The Volpara volumetric breast density category is:B. There has been no change in the appearance of the mammogram from the prior studies. There is a mild amount of scattered fibroglandular density which is fairly symmetric. There is no interval development of dominant mass, architectural distortion, or grouped microcalcification suggestive of malignancy. 3-D tomosynthesis shows no additional findings. Assessment: BI-RADS/ACR category 1 mammogram. Negative Mammogram. Recommendation Routine screening mammogram of both breasts in 1 year (for women over age 40). This patient's [facility] Lifetime Breast Cancer Risk is estimated at 2.8 %. This mammogram was interpreted with the aid of an FDA-approved computer-aided dectection system. Electronically Signed By: Dave Hubbard MD 09/08/20 [id number]
== END ==
LOC: M WHC 10:41
PROVIDERS: ATTEND Family Medicine
DX: Z12.31 Encounter for screening mammogram for malignant neoplasm of breast (principal); Z92.0 Personal history of contraception; Z92.29 Personal history of other drug therapy

== ENCOUNTER → 2020-10-07 | Outpatient (REF) | payer MEDICARE ==
[~2020-10-07] MED LIST changes: +ACET-716 PO; +ERGO500029 PO; +FLON1SPR NARES; +ONDA4TAB6 PO; +PERI0.126 PO; +POLY30DR2 OP; +SERT-141 PO; +XANA0.5T PO
== END ==
LOC: M SFHCLERA 14:44
PROVIDERS: ATTEND Nurse Practitioner Family
DX: R39.11 Hesitancy of micturition (principal)
CPT/HCPCS: 81002; 87086; G0463

== ENCOUNTER → 2020-10-13 | Outpatient (CLI) | payer MEDICARE ==
[~2020-10-13] MED LIST changes: -ACET-716 PO; -ERGO500029 PO; -FLON1SPR NARES; -ONDA4TAB6 PO; -PERI0.126 PO; -POLY30DR2 OP; -SERT-141 PO; -XANA0.5T PO
--- NOTE | 2020-10-13 09:28 | REP ---
INDICATION: PAIN IN RIGHT KNEE. COMPARISON: Right knee series of 12/03/2019 TECHNIQUE: Standing bilateral AP view FINDINGS: There is bilateral medial compartmental narrowing moderate on the right and mild on the left. There is right knee bicompartmental marginal osteophytosis. This has increased since the last exam. IMPRESSION: Chronic changes as described above. <Electronically signed by Kartik Barrientos > 10/13/20 [id number]
== END ==
LOC: M SOG 08:40
PROVIDERS: ATTEND Orthopaedic Surgery Adult Reconstructive Orthopaedic Surgery
DX: M17.0 Bilateral primary osteoarthritis of knee (principal); M25.561 Pain in right knee

== ENCOUNTER → 2021-02-16 | Outpatient (CLI) | payer MEDICARE ==
--- NOTE | 2021-02-16 10:59 | REPVR ---
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 Radiation optimization: All CT scans at this facility use at least one of these dose optimization techniques: automated exposure control; mA and/or kV adjustment per patient size (includes targeted exams where dose is matched to clinical indication); or iterative reconstruction. COMPARISON: CT Maxilofacial w/out contrast 06/25/2018 8:30 AM FINDINGS: Orbital cavity: Bilateral lens replacements. Bones/joints: No acute fracture. Paranasal sinuses: Normal. No air-fluid levels. Soft tissues: Unremarkable. Vasculature: Calcified carotid artery plaques bilaterally. Follow-up non-emergent ultrasound recommended. Other findings: Limited noncontrast exam. IMPRESSION: No dominant mass or confluent lymphadenopathy. MRI with contrast would be more sensitive and specific. Electronically signed by: Gautam Wan On 02/16/2021 10:59:36 AM
== END ==
LOC: M RAD 09:49
PROVIDERS: ATTEND Otolaryngology
DX: C03.0 Malignant neoplasm of upper gum (principal); I65.23 Occlusion and stenosis of bilateral carotid arteries

== ENCOUNTER → 2021-02-23 | Outpatient (CLI) | payer MEDICARE ==
[2021-02-23 13:35] LABS: CREATININE FOR GFR 0.81 MG/DL (0.55-1.30); GLOMERULAR FILTRATION RATE > 60.0 (>39)
== END ==
LOC: M WUC 09:50
PROVIDERS: ATTEND Otolaryngology
DX: C06.9 Malignant neoplasm of mouth, unspecified (principal)

== ENCOUNTER → 2021-02-27 | Outpatient (CLI) | payer MEDICARE ==
[~2021-02-27] MED LIST changes: +ISOVUE-370 76% 100ML VIAL As Ordered ONE
--- NOTE | 2021-02-27 09:11 | REPVR ---
PROCEDURE INFORMATION: Exam: CT Neck With Contrast Exam date and time: 02/27/2021 8:10 AM Age: 76 years old Clinical indication: Condition or disease; Other: Malignant neoplasm of mouth; Additional info: Malignant neoplasm of mouth, unspecified TECHNIQUE: Imaging protocol: Computed tomography images of the neck with contrast. Radiation optimization: All CT scans at this facility use at least one of these dose optimization techniques: automated exposure control; mA and/or kV adjustment per patient size (includes targeted exams where dose is matched to clinical indication); or iterative reconstruction. Contrast material: ISOVUE 370; Contrast volume: 75 ml; Contrast route: INTRAVENOUS (IV); COMPARISON: MRI-Spine,Cervical without con 07/28/2019 9:[address] Maxilofacial w/out contrast 02/16/2021 10:06:33 AM FINDINGS: Orbital cavity: Bilateral prior cataract surgery. Nasopharynx: Unremarkable. Dental: Significant streak artifact is present from metallic dental hardware. Oropharynx: No specific mass identified. No significant tonsillar enlargement. Hypopharynx: Unremarkable. Larynx: Unremarkable. Normal epiglottis. Retropharyngeal space: Unremarkable. Submandibular/Parotid glands: Normal. Glands are normal in size. Thyroid: Normal. No enlarged or calcified nodules. Lymph nodes: Right anterior submandibular lymph node measuring 4.6 mm short axis. Left posterior submandibular lymph node measuring 11.3 mm short axis with mild perinodal induration, and inter gabi focal hypodensity. Left level 2 lymph node measuring 10.5 mm short axis, with central small perinodal hypodensity. Right level 2 lymph node measuring 6.0 mm short axis. Trachea: Visualized trachea is unremarkable. Lungs: Unremarkable as visualized. Bones/joints: Multilevel cervical spondylosis, neural foraminal stenoses and facet primary osteoarthritis. C3-C4 disc calcification without displacement. Mild C4-C5 anterolisthesis. Slight C5-C6 and C6-C7 retrolisthesis. Left and partial right C3-C4 facet joint fusion. No destructive bony process identified. Bilateral temporomandibular joint primary osteoarthritis. Vasculature: Severe stenosis proximal right internal carotid artery. Soft tissues: Unremarkable. No significant soft tissue swelling. IMPRESSION: 1. Suspicious left posterior submandibular and upper cervical lymphadenopathy. 2. Severe stenosis proximal right internal carotid artery. Electronically signed by: Immanuel Byrd On 02/27/2021 09:11:28 AM
== END ==
LOC: M RAD 07:49
PROVIDERS: ATTEND Otolaryngology
DX: C06.9 Malignant neoplasm of mouth, unspecified (principal)
CPT/HCPCS: 70491; Q9967

== ENCOUNTER → 2021-04-12 | Outpatient (CLI) | payer MEDICARE ==
[~2021-04-12] MED LIST changes: -ISOVUE-370 76% 100ML VIAL As Ordered ONE
== END ==
LOC: M LABSMTC 10:26
PROVIDERS: ATTEND Otolaryngology
DX: Z01.812 Encounter for preprocedural laboratory examination (principal); Z20.822 Contact with and (suspected) exposure to COVID-19

== ENCOUNTER → 2021-05-08 | Outpatient (CLI) | payer MEDICARE ==
[~2021-05-08] MED LIST changes: +ACET-716 PO; +ERGO500029 PO; +FLON1SPR NARES; +HALO5TAB33 PO; +LORA2TAB14 PO; +ONDA4TAB6 PO; +PERI0.126 PO; +POLY30DR2 OP; +SERT-141 PO; +XANA0.5T PO
== END ==
LOC: M ONCR 10:00
PROVIDERS: ATTEND General Practice
DX: C03.9 Malignant neoplasm of gum, unspecified (principal); M26.53 Deviation in opening and closing of the mandible; F41.1 Generalized anxiety disorder; Z87.891 Personal history of nicotine dependence
CPT/HCPCS: 31575; G0463

== ENCOUNTER → 2021-05-15 | Outpatient (RCR) | payer MEDICARE ==
[~2021-05-15] MED LIST changes: +D 101000 PO
[2021-05-16 13:30] VITALS: BP 108/69
== END ==
LOC: M ONCR 09:38
PROVIDERS: ATTEND General Practice
DX: C05.0 Malignant neoplasm of hard palate (principal)

== ENCOUNTER → 2021-05-22 | Outpatient (CLI) | payer MEDICARE ==
[~2021-05-22] MED LIST changes: +LIDOCAINE 1% MDV 20ML VIAL As Ordered ONE; +MIDAZOLAM INJ 2MG/2ML VIAL (J2250 PER 1MG) As Ordered ONE; +NS 1,000 ML IV SCH; +PROMETHAZINE INJ 25 MG/ML VIAL (J2550) As Ordered ONE; +ceFAZolin 2 GM/D5W 50 ML IV BAG (J0690 PER 500MG) As Ordered ONE; +ceFAZolin SOD 2 GM in IV 1 EA IV ONE; +diphenhydrAMINE 50MG/ML VIAL (J1200) As Ordered ONE; +fentaNYL 100 MCG/2 ML INJECTION As Ordered ONE
[2021-05-22 12:10] VITALS: BP 159/65
== END ==
LOC: M IRPRO 07:58
PROVIDERS: ATTEND Radiology Diagnostic Radiology
DX: C06.9 Malignant neoplasm of mouth, unspecified (principal)
CPT/HCPCS: 36561; 99152; 99153; C1769; C1788; C1894; J0690; J1200; J1642; J1644; J2250; J3010

== ENCOUNTER → 2021-06-06 | Outpatient (POV) | payer MEDICARE ==
[~2021-06-06] VITALS: Ht 167.6 cm; Wt 80.5 kg
[~2021-06-06] MED LIST changes: +CEPH500C PO; -LIDOCAINE 1% MDV 20ML VIAL As Ordered ONE; -MIDAZOLAM INJ 2MG/2ML VIAL (J2250 PER 1MG) As Ordered ONE; -NS 1,000 ML IV SCH; +ONDA-84 PO; +PROC10TA5 PO; -PROMETHAZINE INJ 25 MG/ML VIAL (J2550) As Ordered ONE; -ceFAZolin 2 GM/D5W 50 ML IV BAG (J0690 PER 500MG) As Ordered ONE; -ceFAZolin SOD 2 GM in IV 1 EA IV ONE; -diphenhydrAMINE 50MG/ML VIAL (J1200) As Ordered ONE; -fentaNYL 100 MCG/2 ML INJECTION As Ordered ONE
[2021-06-06 09:40] VITALS: BP 138/77
== END ==
LOC: M IRPOV 08:51
PROVIDERS: ATTEND Radiology Diagnostic Radiology
DX: Z45.2 Encounter for adjustment and management of vascular access device (principal)

== ENCOUNTER → 2021-06-13 | Outpatient (POV) | payer MEDICARE ==
[~2021-06-13] VITALS: Ht 167.6 cm; Wt 79.5 kg
[~2021-06-13] MED LIST changes: +LIDVISCBTL PO; +OXYC1SOL3 PO; +ZOLP5TAB PO
[2021-06-13 08:20] VITALS: BP 142/65
== END ==
LOC: M IRPOV 08:13
PROVIDERS: ATTEND Radiology Diagnostic Radiology
DX: Z45.2 Encounter for adjustment and management of vascular access device (principal); M54.2 Cervicalgia; Z92.3 Personal history of irradiation

== ENCOUNTER → 2021-06-15 | Outpatient (RCR) | payer MEDICARE ==
[~2021-06-15] MED LIST changes: +OLANZapine 10 MG TAB PO ONE; +PILL CUTTER 1 EACH XX ONE
== END ==
LOC: M ONCR 05-16 12:55
PROVIDERS: ATTEND General Practice
DX: C05.0 Malignant neoplasm of hard palate (principal)

== ENCOUNTER 2021-07-14 08:38 | Outpatient (RCR) | payer MEDICARE ==
[~2021-07-14 08:38] MED LIST changes: +MAGICMW SSP; +MORP-69 PO; -OLANZapine 10 MG TAB PO ONE; -PILL CUTTER 1 EACH XX ONE; +POTA-151 PO; +ZOLP10TA2 PO
== END 2021-07-15 ==
LOC: M ONCR 08:38
PROVIDERS: ATTEND General Practice
DX: C05.0 Malignant neoplasm of hard palate (principal)

== ENCOUNTER 2021-07-17 11:15 | Emergency (ER) | payer MEDICARE ==
[~2021-07-17] VITALS: Ht 167.6 cm; Wt 75.0 kg
[2021-07-17] MEDS ORDERED: NS 1,000 ML IV ONE (11:40)
[2021-07-17] MEDS: SODIUM CHLORIDE 0.9% INJ 10 ML SYR IV PRN ×2 (12:19→16:20)
[2021-07-17 12:26] LABS: BASO % 0.2 % (0.0-1.0); HEMATOCRIT 33.7 % (36.0-47.0); HEMOGLOBIN 11.3 g/dl (12.0-15.5); LYMPH # 0.4 10^3/uL (1.5-5.0); LYMPH % 6.3 % (24.0-44.0); MEAN CORPUSCULAR HEMOGLOBIN 30.1 pg (27.0-33.0); MEAN CORPUSCULAR HGB CONC 33.5 g/dl (32.0-36.5); MEAN CORPUSCULAR VOLUME 89.6 fl (80.0-96.0); MONO # 0.3 10^3/uL (0.0-0.8); MONO % 4.3 % (2.0-8.0); NEUTROPHILS # 5.6 10^3/uL (1.5-8.5); PLATELET COUNT, AUTOMATED 133 10^3/uL (150-450); RED BLOOD COUNT 3.76 10^6/uL (4.00-5.40); WHITE BLOOD COUNT 6.2 10^3/uL (4.0-10.0)
[2021-07-17 12:57] LABS: BLOOD UREA NITROGEN 22 MG/DL (7-18); CALCIUM LEVEL 8.5 MG/DL (8.8-10.2); CARBON DIOXIDE LEVEL 28 MEQ/L (21-32); CHLORIDE LEVEL 107 MEQ/L (98-107); CREATININE FOR GFR 0.45 MG/DL (0.55-1.30); GLOMERULAR FILTRATION RATE > 60.0 (>39); GLUCOSE, FASTING 123 MG/DL (70-100); POTASSIUM SERUM 3.4 MEQ/L (3.5-5.1); SODIUM LEVEL 141 MEQ/L (136-145)
[2021-07-17 13:02] LABS: RSV AMPLIFICATION NEGATIVE (NEGATIVE)
[2021-07-17] MEDS ORDERED: COLA100C5 PO (15:30)
[2021-07-17 16:00] VITALS: BP 157/69
== END 2021-07-17 16:31 | disposition home or self-care (01) ==
LOC: M ED 11:15
DX: K52.1 Toxic gastroenteritis and colitis (principal); K59.03 Drug induced constipation; S00.83XA Contusion of other part of head, initial encounter; X58.XXXA Exposure to other specified factors, initial encounter; Y92.89 Other specified places as the place of occurrence of the external cause; I10 Essential (primary) hypertension; K21.9 Gastro-esophageal reflux disease without esophagitis; Z79.899 Other long term (current) drug therapy
CPT/HCPCS: 36415; 70450; 70486; 71045; 72125; 80048; 83605; 85025; 87040; 87507; 87631; 93005; 93041; 94760; 99285; J1642

== ENCOUNTER 2021-07-24 08:32 | Outpatient (RCR) | payer MEDICARE ==
[~2021-07-24 08:32] MED LIST changes: +COLA100C5 PO
[2021-07-24] MEDS ORDERED: MORP-69 PO (09:23)
[2021-07-24] MEDS ORDERED: OXYC1SOL3 PO (09:23)
[2021-08-01] MEDS ORDERED: PERI0.126 PO (10:17)
[2021-08-10] MEDS ORDERED: ESSE250T PO (09:39)
== END 2021-08-15 ==
LOC: M ONCR 08:32
PROVIDERS: ATTEND General Practice
DX: C05.0 Malignant neoplasm of hard palate (principal)

== ENCOUNTER → 2021-08-01 | Outpatient (CLI) | payer MEDICARE | LOC: M ONCR 09:47 | PROVIDERS: ATTEND General Practice | DX: Z08 Encounter for follow-up examination after completed treatment for malignant neoplasm (principal); C05.0 Malignant neoplasm of hard palate; Z92.21 Personal history of antineoplastic chemotherapy; Z92.3 Personal history of irradiation; K12.33 Oral mucositis (ulcerative) due to radiation; L85.3 Xerosis cutis ==

== ENCOUNTER → 2021-08-17 | Outpatient (CLI) | payer MEDICARE ==
[~2021-08-17] MED LIST changes: +ESSE250T PO
== END ==
LOC: M ONCR 08:39
PROVIDERS: ATTEND General Practice
DX: Z08 Encounter for follow-up examination after completed treatment for malignant neoplasm (principal); M54.2 Cervicalgia; G89.3 Neoplasm related pain (acute) (chronic); Z92.3 Personal history of irradiation; Z92.21 Personal history of antineoplastic chemotherapy

== ENCOUNTER → 2021-10-04 | Outpatient (CLI) | payer MEDICARE ==
[~2021-10-04] MED LIST changes: +BENA2CRE3 TOP
== END ==
LOC: M ONCR 10:32
PROVIDERS: ATTEND General Practice
DX: R21 Rash and other nonspecific skin eruption (principal)

== ENCOUNTER → 2021-10-26 | Outpatient (CLI) | payer MEDICARE ==
[~2021-10-26] MED LIST changes: +AUGM0.05 TOP
== END ==
LOC: M PLARAD 12:42
PROVIDERS: ATTEND General Practice
DX: C50.019 Malignant neoplasm of nipple and areola, unspecified female breast (principal); I65.23 Occlusion and stenosis of bilateral carotid arteries; J84.10 Pulmonary fibrosis, unspecified; I70.0 Atherosclerosis of aorta; D73.89 Other diseases of spleen; N20.0 Calculus of kidney; N83.201 Unspecified ovarian cyst, right side
CPT/HCPCS: 78815; A9552

== ENCOUNTER → 2021-10-27 | Outpatient (CLI) | payer MEDICARE | LOC: M ONCR 09:07 | PROVIDERS: ATTEND General Practice | DX: Z08 Encounter for follow-up examination after completed treatment for malignant neoplasm (principal); Z85.818 Personal history of malignant neoplasm of other sites of lip, oral cavity, and pharynx; L29.9 Pruritus, unspecified; Z92.21 Personal history of antineoplastic chemotherapy; Z92.3 Personal history of irradiation; Z79.899 Other long term (current) drug therapy; Z87.891 Personal history of nicotine dependence | CPT/HCPCS: 31575; G0463 ==

== ENCOUNTER → 2022-01-02 | Outpatient (CLI) | payer MEDICARE | LOC: M SOG 08:00 | PROVIDERS: ATTEND Orthopaedic Surgery | DX: M54.50 Low back pain, unspecified (principal) ==

== ENCOUNTER → 2022-01-26 | Outpatient (CLI) | payer MEDICARE ==
[~2022-01-26] MED LIST changes: -DOXY-350 PO; +DOXY-444 PO
== END ==
LOC: M ONCR 09:20
PROVIDERS: ATTEND General Practice
DX: C03.0 Malignant neoplasm of upper gum (principal); Z79.899 Other long term (current) drug therapy; Z87.891 Personal history of nicotine dependence; Z92.21 Personal history of antineoplastic chemotherapy; Z92.3 Personal history of irradiation
CPT/HCPCS: 31575; G0463

== ENCOUNTER 2022-04-03 12:52 | Emergency (ER) | payer MEDICARE ==
[~2022-04-03] VITALS: Ht 167.6 cm; Wt 68.5 kg
[~2022-04-03 12:52] MED LIST changes: -PAXI20TA29 PO; +PAXI20TA30 PO
[2022-04-03] MEDS ORDERED: ZOLP5TAB PO (13:33)
[2022-04-03 16:41] LABS: BASO % 0.5 % (0.0-1.0); EOS # 0.2 10^3/uL (0.0-0.5); HEMATOCRIT 38.1 % (36.0-47.0); HEMOGLOBIN 12.9 g/dl (12.0-15.5); LYMPH # 1.6 10^3/uL (1.5-5.0); LYMPH % 23.7 % (24.0-44.0); MEAN CORPUSCULAR HEMOGLOBIN 32.1 pg (27.0-33.0); MEAN CORPUSCULAR HGB CONC 33.9 g/dl (32.0-36.5); MEAN CORPUSCULAR VOLUME 94.8 fl (80.0-96.0); MONO # 0.5 10^3/uL (0.0-0.8); MONO % 7.6 % (2.0-8.0); NEUTROPHILS # 4.3 10^3/uL (1.5-8.5); PLATELET COUNT, AUTOMATED 227 10^3/uL (150-450); RED BLOOD COUNT 4.02 10^6/uL (4.00-5.40); WHITE BLOOD COUNT 6.6 10^3/uL (4.0-10.0)
[2022-04-03 17:44] LABS: BLOOD UREA NITROGEN 18 MG/DL (9-23); CALCIUM LEVEL 9.5 MG/DL (8.3-10.6); CARBON DIOXIDE LEVEL 29 MMOL/L (20-31); CHLORIDE LEVEL 101 MMOL/L (98-107); CREATININE FOR GFR 0.73 MG/DL (0.55-1.30); GLOMERULAR FILTRATION RATE > 60.0 (>39); GLUCOSE, FASTING 92 MG/DL (74-106); POTASSIUM SERUM 4.5 MMOL/L (3.5-5.1); SODIUM LEVEL 139 MMOL/L (136-145)
[2022-04-03] MEDS ORDERED: ISOVUE-370 76% 100ML VIAL As Ordered ONE (18:14)
[2022-04-03] MEDS ORDERED: ceFAZolin SOD 2 GM in IV 1 EA IV ONE (19:05)
[2022-04-03] MEDS ORDERED: CEPH500C PO (19:07)
[2022-04-03 20:28] VITALS: BP 169/70
[2022-04-10] MEDS ORDERED: ZOLP5TAB PO (11:25)
== END 2022-04-03 20:31 | disposition home or self-care (01) ==
LOC: M ED 17:59
DX: L03.221 Cellulitis of neck (principal); I10 Essential (primary) hypertension; E78.5 Hyperlipidemia, unspecified; C03.0 Malignant neoplasm of upper gum; K21.9 Gastro-esophageal reflux disease without esophagitis; Z79.899 Other long term (current) drug therapy
CPT/HCPCS: 36415; 70491; 80048; 83605; 85025; 87040; 96365; 99284; Q9967

== ENCOUNTER → 2022-04-10 | Outpatient (CLI) | payer MEDICARE | LOC: M ONCR 10:09 | PROVIDERS: ATTEND General Practice | DX: Z08 Encounter for follow-up examination after completed treatment for malignant neoplasm (principal); Z85.818 Personal history of malignant neoplasm of other sites of lip, oral cavity, and pharynx; Z79.899 Other long term (current) drug therapy; Z87.891 Personal history of nicotine dependence; Z92.21 Personal history of antineoplastic chemotherapy; Z92.3 Personal history of irradiation | CPT/HCPCS: 31575; G0463 ==

== ENCOUNTER → 2022-04-27 | Outpatient (REF) | payer MEDICARE, OTHER ==
[2022-04-27 09:32] LABS: CHOLESTEROL RISK RATIO 4.52 (<5); HDL CHOLESTEROL 47.7 MG/DL (>40); LDL CHOLESTEROL 144.9 MG/DL (<100)
== END ==
LOC: M LAB REF 08:41
PROVIDERS: ATTEND Student in an Organized Health Care Education/Training Program
DX: Z00.00 Encounter for general adult medical examination without abnormal findings (principal)

== ENCOUNTER 2022-05-17 12:57 | Emergency (ER) | payer OTHER ==
[~2022-05-17] VITALS: Ht 167.6 cm; Wt 69.1 kg
[~2022-05-17 12:57] MED LIST changes: +COZA100T3 PO
[2022-05-17 16:22] VITALS: BP 178/75
== END 2022-05-17 16:39 | disposition home or self-care (01) ==
LOC: M ED 12:57
DX: R42 Dizziness and giddiness (principal); I10 Essential (primary) hypertension; E78.5 Hyperlipidemia, unspecified; F41.9 Anxiety disorder, unspecified; Z79.899 Other long term (current) drug therapy

== ENCOUNTER → 2022-05-18 | Outpatient (CLI) | payer OTHER ==
[~2022-05-18] MED LIST changes: +ISOVUE-370 76% 100ML VIAL As Ordered ONE
== END ==
LOC: M RAD 10:54
PROVIDERS: ATTEND Specialist
DX: C76.0 Malignant neoplasm of head, face and neck (principal)
CPT/HCPCS: 70470; 70491; Q9967

== ENCOUNTER → 2022-05-31 | Outpatient (REF) | payer OTHER ==
[~2022-05-31] MED LIST changes: -ISOVUE-370 76% 100ML VIAL As Ordered ONE
== END ==
LOC: M SFHCPLAZ 12:44
PROVIDERS: ATTEND Internal Medicine Infectious Disease
DX: A46 Erysipelas (principal)

== ENCOUNTER → 2022-07-02 | Outpatient (CLI) | payer OTHER ==
[2022-07-02 10:48] LABS: THYROID STIMULATING HORMONE 4.521 uIU/ML (0.55-4.78)
[2022-07-02 10:49] LABS: FREE T4 0.96 NG/DL (0.89-1.76)
== END ==
LOC: M PLALAB 08:23
PROVIDERS: ATTEND Student in an Organized Health Care Education/Training Program
DX: R00.2 Palpitations (principal)

== ENCOUNTER → 2022-07-10 | Outpatient (CLI) | payer OTHER | LOC: M ONCR 09:46 | PROVIDERS: ATTEND General Practice | DX: Z08 Encounter for follow-up examination after completed treatment for malignant neoplasm (principal); Z85.818 Personal history of malignant neoplasm of other sites of lip, oral cavity, and pharynx; Z79.899 Other long term (current) drug therapy; Z87.891 Personal history of nicotine dependence; Z92.21 Personal history of antineoplastic chemotherapy; Z92.3 Personal history of irradiation | CPT/HCPCS: 31575; G0463 ==

== ENCOUNTER → 2022-07-18 | Outpatient (CLI) | payer OTHER | LOC: M SOG 07:54 | PROVIDERS: ATTEND Orthopaedic Surgery | DX: M19.012 Primary osteoarthritis, left shoulder (principal) ==

== ENCOUNTER → 2022-07-23 | Outpatient (CLI) | payer OTHER | LOC: M CARPUL 14:43 | PROVIDERS: ATTEND Student in an Organized Health Care Education/Training Program | DX: I35.0 Nonrheumatic aortic (valve) stenosis (principal) ==

== ENCOUNTER → 2022-09-24 | Outpatient (REF) | payer OTHER | LOC: M SFHCPLAZ 13:27 | PROVIDERS: ATTEND Internal Medicine Infectious Disease | DX: A46 Erysipelas (principal) ==

== ENCOUNTER → 2022-10-09 | Outpatient (CLI) | payer OTHER | LOC: M ONCR 09:43 | PROVIDERS: ATTEND General Practice | DX: Z85.818 Personal history of malignant neoplasm of other sites of lip, oral cavity, and pharynx (principal); Z92.21 Personal history of antineoplastic chemotherapy; Z92.3 Personal history of irradiation; Z87.891 Personal history of nicotine dependence; Z79.899 Other long term (current) drug therapy; Z71.2 Person consulting for explanation of examination or test findings; R20.2 Paresthesia of skin | CPT/HCPCS: 31575; G0463 ==

== ENCOUNTER → 2022-10-31 | Outpatient (CLI) | payer OTHER ==
[~2022-10-31] MED LIST changes: +ISOVUE-370 76% 100ML VIAL As Ordered ONE
== END ==
LOC: M RAD 12:28
PROVIDERS: ATTEND General Practice
DX: C05.0 Malignant neoplasm of hard palate (principal); E07.89 Other specified disorders of thyroid
CPT/HCPCS: 70491; 71260; Q9967

== ENCOUNTER → 2022-11-02 | Outpatient (CLI) | payer OTHER ==
[~2022-11-02] MED LIST changes: -ISOVUE-370 76% 100ML VIAL As Ordered ONE
== END ==
LOC: M ONCR 08:41
PROVIDERS: ATTEND Specialist
DX: E07.9 Disorder of thyroid, unspecified (principal); Z85.818 Personal history of malignant neoplasm of other sites of lip, oral cavity, and pharynx; Z71.2 Person consulting for explanation of examination or test findings; Z79.899 Other long term (current) drug therapy; Z87.891 Personal history of nicotine dependence; Z92.21 Personal history of antineoplastic chemotherapy; Z92.3 Personal history of irradiation

== ENCOUNTER → 2022-11-13 | Outpatient (CLI) | payer OTHER | LOC: M RAD 13:53 | PROVIDERS: ATTEND Radiology Radiation Oncology | DX: C05.0 Malignant neoplasm of hard palate (principal); E04.1 Nontoxic single thyroid nodule ==

== ENCOUNTER → 2022-11-15 | Outpatient (CLI) | payer OTHER | LOC: M ONCR 08:46 | PROVIDERS: ATTEND General Practice | DX: E04.2 Nontoxic multinodular goiter (principal); R40.0 Somnolence; Z85.818 Personal history of malignant neoplasm of other sites of lip, oral cavity, and pharynx | CPT/HCPCS: 10005; 88173; G0463 ==

== ENCOUNTER → 2022-11-16 | Outpatient (CLI) | payer OTHER | LOC: M SOG 07:52 | PROVIDERS: ATTEND Orthopaedic Surgery | DX: M25.561 Pain in right knee (principal) ==

== ENCOUNTER → 2022-12-21 | Outpatient (CLI) | payer OTHER ==
[~2022-12-21] MED LIST changes: -COZA100T3 PO; +LIDOCAINE 1% MDV 20ML VIAL As Ordered ONE; +LOSA-530 PO
[2022-12-21 10:30] VITALS: BP 189/89; TEMP 97.8; O2SAT 98
[2022-12-21 10:42] LABS: BASO % 0.8 % (0.0-1.0); EOS # 0.2 10^3/uL (0.0-0.5); EOS % 5.5 % (0.0-3.0); HEMATOCRIT 35.9 % (36.0-47.0); HEMOGLOBIN 12.3 g/dl (12.0-15.5); LYMPH # 1.1 10^3/uL (1.5-5.0); LYMPH % 29.6 % (24.0-44.0); MEAN CORPUSCULAR HEMOGLOBIN 32.3 pg (27.0-33.0); MEAN CORPUSCULAR HGB CONC 34.3 g/dl (32.0-36.5); MEAN CORPUSCULAR VOLUME 94.2 fl (80.0-96.0); MONO # 0.3 10^3/uL (0.0-0.8); MONO % 8.6 % (2.0-8.0); NEUTROPHILS # 2.1 10^3/uL (1.5-8.5); NEUTROPHILS % 55.5 % (36.0-66.0); PLATELET COUNT, AUTOMATED 224 10^3/uL (150-450); RED BLOOD COUNT 3.81 10^6/uL (4.00-5.40); WHITE BLOOD COUNT 3.8 10^3/uL (4.0-10.0)
[2022-12-21 10:52] LABS: INR 1.05; PROTHROMBIN TIME 13.4 SECONDS (12.5-14.5)
[2022-12-21 11:12] LABS: ALBUMIN 4.1 G/DL (3.2-5.2); ALKALINE PHOSPHATASE 98 U/L (46-116); ALT/SGPT 25 U/L (7.0-40); AST/SGOT 35 U/L (<34); BILIRUBIN,TOTAL 0.7 MG/DL (0.3-1.2); BLOOD UREA NITROGEN 20 MG/DL (9-23); CALCIUM LEVEL 8.9 MG/DL (8.3-10.6); CARBON DIOXIDE LEVEL 30 MMOL/L (20-31); CHLORIDE LEVEL 107 MMOL/L (98-107); CREATININE FOR GFR 0.74 MG/DL (0.55-1.30); GLOMERULAR FILTRATION RATE > 60.0 (>39); GLUCOSE, FASTING 97 MG/DL (74-106); POTASSIUM SERUM 4.4 MMOL/L (3.5-5.1); SODIUM LEVEL 142 MMOL/L (136-145); TOTAL PROTEIN 6.8 G/DL (5.7-8.2)
== END ==
LOC: M IRPRO 09:38
PROVIDERS: ATTEND General Practice
DX: D44.0 Neoplasm of uncertain behavior of thyroid gland (principal)

== ENCOUNTER → 2022-12-25 | Outpatient (CLI) | payer OTHER ==
[~2022-12-25] MED LIST changes: -LIDOCAINE 1% MDV 20ML VIAL As Ordered ONE
== END ==
LOC: M ONCR 09:00
PROVIDERS: ATTEND General Practice
DX: Z71.2 Person consulting for explanation of examination or test findings (principal); E07.9 Disorder of thyroid, unspecified

== ENCOUNTER → 2023-02-13 | Outpatient (CLI) | payer OTHER | PROVIDERS: ATTEND General Practice | DX: Z08 Encounter for follow-up examination after completed treatment for malignant neoplasm (principal); Z85.818 Personal history of malignant neoplasm of other sites of lip, oral cavity, and pharynx; Z71.2 Person consulting for explanation of examination or test findings; Z79.899 Other long term (current) drug therapy; Z87.891 Personal history of nicotine dependence; Z92.21 Personal history of antineoplastic chemotherapy; Z92.3 Personal history of irradiation; Z98.890 Other specified postprocedural states | CPT/HCPCS: 31575; G0463 ==

== ENCOUNTER → 2023-05-27 | Outpatient (CLI) | payer OTHER | LOC: M RAD 11:25 | PROVIDERS: ATTEND General Practice | DX: C05.0 Malignant neoplasm of hard palate (principal); D44.0 Neoplasm of uncertain behavior of thyroid gland; E04.2 Nontoxic multinodular goiter ==

== ENCOUNTER → 2023-07-04 | Outpatient (CLI) | payer OTHER | LOC: M ONCR 08:07 | PROVIDERS: ATTEND General Practice | DX: Z08 Encounter for follow-up examination after completed treatment for malignant neoplasm (principal); Z85.818 Personal history of malignant neoplasm of other sites of lip, oral cavity, and pharynx; R53.83 Other fatigue; Z71.2 Person consulting for explanation of examination or test findings; Z87.891 Personal history of nicotine dependence; Z79.899 Other long term (current) drug therapy; Z92.21 Personal history of antineoplastic chemotherapy; Z92.3 Personal history of irradiation | CPT/HCPCS: 31575; G0463 ==

== ENCOUNTER → 2023-09-02 | Outpatient (CLI) | payer OTHER ==
[~2023-09-02] MED LIST changes: +DOXY-440 PO; -DOXY-444 PO; +ONDA-282 PO; -ONDA4TAB6 PO
== END ==
LOC: M ONCR 07:45
PROVIDERS: ATTEND General Practice
DX: D48.5 Neoplasm of uncertain behavior of skin (principal)

== ENCOUNTER → 2023-12-27 | Outpatient (CLI) | payer OTHER ==
[~2023-12-27] MED LIST changes: +GABA-1172 PO; -GABA-282 PO; +ISOVUE-370 76% 100ML VIAL As Ordered ONE
== END ==
LOC: M RAD 12:26
PROVIDERS: ATTEND General Practice
DX: C05.0 Malignant neoplasm of hard palate (principal); M26.643 Arthritis of bilateral temporomandibular joint
CPT/HCPCS: 70491; 71260; Q9967

== ENCOUNTER → 2024-01-03 | Outpatient (CLI) | payer OTHER, MEDICAID ==
[~2024-01-03] MED LIST changes: -ISOVUE-370 76% 100ML VIAL As Ordered ONE
== END ==
LOC: M ONCR 07:41
PROVIDERS: ATTEND General Practice
DX: Z08 Encounter for follow-up examination after completed treatment for malignant neoplasm (principal); C05.0 Malignant neoplasm of hard palate; I65.23 Occlusion and stenosis of bilateral carotid arteries; Z79.899 Other long term (current) drug therapy; Z87.891 Personal history of nicotine dependence; Z92.3 Personal history of irradiation
CPT/HCPCS: 31575; G0463

== ENCOUNTER → 2024-06-26 | Outpatient (CLI) | payer MEDICARE, MEDICAID ==
[~2024-06-26] MED LIST changes: +ALPR0.5T3 PO; -AUGM0.05 TOP; +AUGM0.0511 TOP
== END ==
LOC: M RAD 10:45
PROVIDERS: ATTEND Physician Assistant
DX: I65.21 Occlusion and stenosis of right carotid artery (principal)

== ENCOUNTER → 2024-07-16 | Outpatient (CLI) | payer MEDICARE, MEDICAID ==
[~2024-07-16] MED LIST changes: +LEVO25TA5 PO; +MORP-138 PO; -MORP15TASA PO
== END ==
LOC: M ONCR 07:40
PROVIDERS: ATTEND General Practice
DX: Z08 Encounter for follow-up examination after completed treatment for malignant neoplasm (principal); Z85.818 Personal history of malignant neoplasm of other sites of lip, oral cavity, and pharynx; E03.9 Hypothyroidism, unspecified; Z98.890 Other specified postprocedural states; Z92.21 Personal history of antineoplastic chemotherapy; Z92.3 Personal history of irradiation; Z87.891 Personal history of nicotine dependence; Z79.890 Hormone replacement therapy; Z79.899 Other long term (current) drug therapy
CPT/HCPCS: 31575; G0463

== ENCOUNTER → 2024-10-06 | Outpatient (CLI) | payer MEDICARE, MEDICAID ==
[~2024-10-06] MED LIST changes: +CYMB60CA4 PO; -ESSE250T PO; +MAGN250T17 PO; -PRAV40TA2 PO; +PRAV40TA85 PO
== END ==
LOC: M ONCR 10:08
PROVIDERS: ATTEND General Practice
DX: G62.9 Polyneuropathy, unspecified (principal); Z85.818 Personal history of malignant neoplasm of other sites of lip, oral cavity, and pharynx

== ENCOUNTER → 2024-12-28 | Outpatient (CLI) | payer MEDICARE, MEDICAID ==
[~2024-12-28] MED LIST changes: +ZOLP10TA11 PO; -ZOLP10TA2 PO; -ZOLP5TAB PO; +ZOLP5TAB9 PO
== END ==
LOC: M RAD 11:06
PROVIDERS: ATTEND Physician Assistant
DX: I65.23 Occlusion and stenosis of bilateral carotid arteries (principal)

== ENCOUNTER → 2025-01-13 | Outpatient (CLI) | payer MEDICARE, MEDICAID | LOC: M RAD 13:26 | PROVIDERS: ATTEND General Practice | DX: C05.0 Malignant neoplasm of hard palate (principal) ==

== ENCOUNTER → 2025-01-13 | Outpatient (CLI) | payer MEDICARE, MEDICAID ==
[~2025-01-13] MED LIST changes: +ISOVUE-370 76% 100 ML VIAL As Ordered ONE
== END ==
LOC: M RAD 12:46
PROVIDERS: ATTEND Surgery Vascular Surgery
DX: I65.21 Occlusion and stenosis of right carotid artery (principal); C05.0 Malignant neoplasm of hard palate
CPT/HCPCS: 70491; 70496; 70498; 71260; Q9967

== ENCOUNTER → 2025-01-20 | Outpatient (CLI) | payer MEDICARE, MEDICAID ==
[~2025-01-20] MED LIST changes: -ISOVUE-370 76% 100 ML VIAL As Ordered ONE
== END ==
LOC: M ONCR 08:05
PROVIDERS: ATTEND Radiology Radiation Oncology
DX: Z08 Encounter for follow-up examination after completed treatment for malignant neoplasm (principal); Z85.818 Personal history of malignant neoplasm of other sites of lip, oral cavity, and pharynx; Z98.890 Other specified postprocedural states; Z92.21 Personal history of antineoplastic chemotherapy; Z92.3 Personal history of irradiation; Z79.899 Other long term (current) drug therapy; Z87.891 Personal history of nicotine dependence